=== PATIENT | male | born 1975 | race Caucasian/White ===

== ENCOUNTER → 2016-08-15 | Outpatient (REF) ==
[~2016-08-15] MED LIST: ANTIBIOTIC; CEPHALEXIN500 M1 PO; NORCO 325 MG-51 TAB PO; PERCOCET PO; VITAMIN B11000 MCG/M IM
== END ==
LOC: WSOH 08:50
DX: Z02.4 Encounter for examination for driving license (principal)

== ENCOUNTER 2018-04-09 17:06 | Inpatient (IN) | payer BC ==
[~2018-04-09] VITALS: Ht 172.7 cm; Wt 67.3 kg
[2018-04-09 18:15] LABS: BASO # 0.1 (0.0-0.2); BASO % 0.4 % (0.0-2.0); EOS # 0.1 (0.0-0.7); EOS % 0.7 % (0-4.0); GRAN # 9.4 (1.4-6.5); LYMPH # 1.2 (1.2-3.4); LYMPH % 10.3 % (20.0-51.0); MEAN CELL VOLUME 85 fl (80.0-100.0); MEAN CORPUSCULAR HGB CONC 33 g/dl (33.0-37.0); MEAN PLATELET VOLUME 9.6 fl (7.4-10.4); MONO # 0.5 (0.1-0.6); MONO % 4.5 % (1.7-9.3); PLATELET COUNT 402 K/mm3 (130-400); RED BLOOD COUNT 3.37 M/mm3 (4.20-5.60); REDCELL DISTRIBUTION WIDTH-CV 16.9 % (11.5-14.5)
[2018-04-09 18:29] LABS: ALANINE AMINOTRANSFERASE 18 U/L (21-72); ALBUMIN 3.4 gm/dL (3.5-5.0); ALKALINE PHOSPHATASE 116 U/L (50-136); ANION GAP 14 mmol/L (7-16); AST,SGOT 13 U/L (15-37); BILIRUBIN,TOTAL 0.3 mg/dL (0.0-1.0); BLOOD UREA NITROGEN 41 mg/dL (9-20); C-REACTIVE PROTEIN 8.3 mg/dL (0.0-0.9); CALCIUM 8.7 mg/dL (8.4-10.2); CHLORIDE 110 mmol/L (98-107); GLUCOSE 201 mg/dL (74-106); POTASSIUM 3.9 mmol/L (3.4-5.0); SODIUM 136 mmol/L (137-145); TOTAL PROTEIN 6.9 gm/dL (6.4-8.2); URIC ACID 6.5 mg/dL (3.5-8.5)
[2018-04-09 18:30] LABS: CARBON DIOXIDE 12 mmol/L (22-30); CREATINE KINASE < 20 U/L (55-170); CREATININE, serum 4.88 mg/dL (0.66-1.25)
[2018-04-09 18:51] LABS: ERYTHROCYTE SEDIMENTATION RATE 84 mm/hr (0-15); HEMATOCRIT 28.7 % (42.0-52.0); HEMOGLOBIN 9.4 g/dl (13.5-18.0); MEAN CORPUSCULAR HEMOGLOBIN 28 pg (27.0-31.0)
[2018-04-09 19:47] LABS: INR 1.3 (0.8-3.0); PROTHROMBIN TIME 14.2 SECONDS (9.7-12.8)
[2018-04-09 19:50] LABS: PARTIAL THROMBOPLASTIN TIME 33.1 SECONDS (26.0-37.0)
[2018-04-09 21:07] LABS: COLLECTION METHOD CLEAN CATCH
[2018-04-09 21:22] LABS: IRON,SERUM 13 ug/dL (35-150)
[2018-04-09 21:26] LABS: MUCOUS Present /lpf; PH 5 (5-8); SQUAMOUS EPITHELIAL None Seen /hpf; URINE APPEARANCE Clear; URINE BACTERIA None Seen /hpf; URINE BILIRUBIN Negative (NEGATIVE); URINE BLOOD 2+ (NEGATIVE); URINE COLOR Yellow; URINE GLUCOSE Negative (NEGATIVE); URINE KETONE Negative (NEGATIVE); URINE LEUKOCYTE ESTERASE 1+ (NEGATIVE); URINE NITRATE Negative (NEGATIVE); URINE PROTEIN(semi-quant) Negative (NEGATIVE); URINE UROBILINOGEN Negative (NEGATIVE)
[2018-04-09 21:31] LABS: TOTAL IRON BINDING CAPACITY 235 ug/dL (261-462)
[2018-04-09 21:58] LABS: FERRITIN 273 ng/mL (18-464)
[2018-04-09 22:21] VITALS: BP 137/67; PULSE 112; TEMP 99.5
[2018-04-09 22:22] VITALS: BP 137/67; PULSE 112; TEMP 99.5
[2018-04-09 23:41] VITALS: BP 142/70; PULSE 108; TEMP 99.7
--- NOTE | 2018-04-09 23:57 | NUR ---
PT ARRIVED FROM ER VIA [facility], ACCOMPANIED BY SOCIAL SERVICE COORDINATOR, NO FAMILY WITH PT. PT IN PAIN LEFT FOOT HAS +2 EDEMA, REDNESS, AND WARM, AND RIGHT FOOT HAS +1 EDEMA AND WARM. PT ADVISES THAT HE HAS PAIN ALL OVER HIS BODY AND RATES IT AT A 7/10. PT WAS GIVEN SOME TYLENOL. PT'S TEMP 99.7. PT ATE SOME FOOD THAT HE BROUGHT WITH HIM. PT IS AWARE THAT HE IS NPO AFTER MIDNIGHT. PT IS RESTING IN BED. NO NEEDS AT THIS TIME, CALL LIGHT WITHIN REACH.
[2018-04-10] VITALS (8 sets, daily range): BP systolic 98–140; BP diastolic 53–76; PULSE 74–100; TEMP 97.4–98.9
--- NOTE | 2018-04-10 02:27 | NUR ---
PT SLEEPING/RESTING IN BED, WITH RESP EVEN AND UNLABORED, CALL LIGHT WITHIN REACH.
[2018-04-10 05:40] LABS: URINE PROTEIN:CREAT RATIO 1.19 (0.00-0.14)
[2018-04-10 06:43] LABS: MEAN CELL VOLUME 86 fl (80.0-100.0); MEAN CORPUSCULAR HGB CONC 33 g/dl (33.0-37.0); MEAN PLATELET VOLUME 9.4 fl (7.4-10.4); PLATELET COUNT 371 K/mm3 (130-400); RED BLOOD COUNT 2.84 M/mm3 (4.20-5.60); REDCELL DISTRIBUTION WIDTH-CV 16.9 % (11.5-14.5)
[2018-04-10 06:45] LABS: HEMATOCRIT 24.3 % (42.0-52.0); HEMOGLOBIN 7.9 g/dl (13.5-18.0); MEAN CORPUSCULAR HEMOGLOBIN 28 pg (27.0-31.0)
[2018-04-10 07:04] LABS: ALBUMIN 2.5 gm/dL (3.5-5.0); BILIRUBIN,TOTAL 0.1 mg/dL (0.0-1.0); CALCIUM 8.2 mg/dL (8.4-10.2); TOTAL PROTEIN 5.7 gm/dL (6.4-8.2)
--- NOTE | 2018-04-10 07:13 | NUR ---
UNEVENTFUL NIGHT FOR PT. PT SLEPT THROUGHOUT THE NIGHT WITH NO S/S OF PAIN OR DISCOMFORT NOTED. CALL LIGHT WITHIN REACH.
--- NOTE | 2018-04-10 07:30 | NUR ---
Assessment complete. Pt sitting up in bed, A&O x 4. Breath sounds CTAB. BS active x 4. Pt reports pain to bilat flank 9 out of 10 on pain scale, PRN pain medication was administered per orders. IVF's infusing per orders through left AC site without s/s of complications. No further needs reported. Call light in reach.
[2018-04-10 07:46] LABS: CREATININE, serum 4.25 mg/dL (0.66-1.25)
[2018-04-10 10:24] LABS: ANISOCYTOSIS 1+; BAND 4 % (0-10); EOSINOPHIL 2 % (0-4); LYMPHOCYTE 24 % (20.0-51.0); NEUTROPHILS 64 % (42.0-75.2); PLATELET ESTIMATE NORMAL (NORMAL)
--- NOTE | 2018-04-10 11:20 | NUR ---
Pt back to room from PACU following procedure via bed, alert, denies pain at this time. VSS. IVF's infusing by gravity to left AC site without s/s of complications. Ice water provided and POC reviewed with pt. Paulo to RD with light pink urine. No further needs reported. Call light in reach.
--- NOTE | 2018-04-10 11:48 | NUR ---
Plan to return home. Lives alone. Patient reports that he lives outside of [place]. Patient reports that he uses [facility] for medications. No PCP reported or listed. Patient idnicated that his mother Kylee will support getting him home and is emr contact . Denies the use of any home health or DME. NO DPOA. Declined setting one up. Action: Educated on resources and services locally. No additional concerns identified.
--- NOTE | 2018-04-10 14:15 | NUR ---
No pain or needs at thsi time. The call light is in place. Education related to renal diet provided to the patient.
[2018-04-10 17:10] LABS: COMPLEMENT-C3 153 mg/dL (79-152); COMPLEMENT-C4 32 mg/dL (18-55)
--- NOTE | 2018-04-10 18:14 | NUR ---
Sleeping soundly. Urine remains pink to peach colored. No pain reported at this time. No stones or debris visulaized in the urine. The call light is in place.
--- NOTE | 2018-04-10 20:00 | NUR ---
PT DENIES PAIN OR DISCOMFORT AND ADVISES THAT HE SLEPT WELL AFTER SURGERY. PT HAS MITCHELL CATHETER THAT URINE IS YELLOW AND CLEAR. NO NEEDS AT THIS TIME. PT STILL IN BED WITH HOB AT 30 DEGREE ANGLE, CALL LIGHT WITHIN REACH.
[2018-04-11 02:24] VITALS: BP 143/77; PULSE 96
--- NOTE | 2018-04-11 05:50 | NUR ---
PT HAS HAD AN UNEVENTFUL NIGHT. PT HAS DECLINED PAIN MEDICATION MOST OF THE NIGHT. PT WAS GIVEN PAIN MEDICATION AROUND 0300 OR 0400, FOR PAIN RATED AT A 4/10 ALL OVER PAIN IN JOINTS. PT GIVEN TYLENOL, PT WENT BACK TO SLEEP AND IS NOW RESTING/SLEEPING WITH NO S/S OF PAIN OR DISCOMFORT NOTED. MITCHELL CATHETER HAS BEEN DRAINING WELL WITH CLEAR YELLOW URINE. CALL LIGHT WITHIN REACH.
[2018-04-11 06:54] LABS: BASO % 0.5 % (0.0-2.0); EOS # 0.5 (0.0-0.7); EOS % 6.6 % (0-4.0); GRAN # 4.9 (1.4-6.5); GRAN % 60.6 % (42.2-75.2); LYMPH # 1.3 (1.2-3.4); LYMPH % 16.6 % (20.0-51.0); MEAN CELL VOLUME 86 fl (80.0-100.0); MEAN CORPUSCULAR HGB CONC 32 g/dl (33.0-37.0); MEAN PLATELET VOLUME 9.7 fl (7.4-10.4); MONO % 12.5 % (1.7-9.3); PLATELET COUNT 397 K/mm3 (130-400); RED BLOOD COUNT 2.79 M/mm3 (4.20-5.60); REDCELL DISTRIBUTION WIDTH-CV 17.1 % (11.5-14.5)
[2018-04-11 07:03] LABS: ALBUMIN 2.4 gm/dL (3.5-5.0); BILIRUBIN,TOTAL 0.1 mg/dL (0.0-1.0); CALCIUM 8.7 mg/dL (8.4-10.2); CREATININE, serum 3.7 mg/dL (0.66-1.25); POTASSIUM 4.2 mmol/L (3.4-5.0); TOTAL PROTEIN 5.5 gm/dL (6.4-8.2)
[2018-04-11 07:19] LABS: HEMOGLOBIN 7.7 g/dl (13.5-18.0); MEAN CORPUSCULAR HEMOGLOBIN 28 pg (27.0-31.0)
[2018-04-11 07:33] VITALS: BP 138/79; PULSE 92; TEMP 97.5
--- NOTE | 2018-04-11 08:15 | NUR ---
Assessment complete. Pt resting in bed, A&O x 4. Breath sounds CTAB. BS active x 4. Pt denies pain at this time, reports just feeling tired d/t not able to sleep comfortably over NOC. IVF's infusing per orders through left AC site without s/s of complications. Bates to DD with clear, yellow urine. No further needs reported. Call light in reach.
[2018-04-11 11:48] VITALS: BP 156/84; PULSE 88; TEMP 97.7
[2018-04-11 16:40] VITALS: BP 146/83; PULSE 92; TEMP 98.4
--- NOTE | 2018-04-11 18:20 | NUR ---
Pt resting in bed, denies pain or needs. Uneventful shift. Bates still in place per urologist order. Call light in reach.
[2018-04-11 18:59] VITALS: BP 137/85; PULSE 81; TEMP 98.6
--- NOTE | 2018-04-11 20:35 | NUR ---
Pt resting in bed napping, no C/O pain, shift assessment complete, left Pt call light in reach, bed in lowest position.
[2018-04-12 00:24] VITALS: BP 143/81; PULSE 82; TEMP 98.2
[2018-04-12 03:38] VITALS: BP 154/77; PULSE 85; TEMP 97.9
--- NOTE | 2018-04-12 05:15 | NUR ---
Pt slept well during the night, no C/O pain during the shift, VS ahve remained stable.
[2018-04-12 06:07] LABS: MEAN CELL VOLUME 86 fl (80.0-100.0); MEAN CORPUSCULAR HGB CONC 32 g/dl (33.0-37.0); MEAN PLATELET VOLUME 9.7 fl (7.4-10.4); PLATELET COUNT 398 K/mm3 (130-400); RED BLOOD COUNT 3.04 M/mm3 (4.20-5.60); REDCELL DISTRIBUTION WIDTH-CV 17.1 % (11.5-14.5)
[2018-04-12 06:12] LABS: HEMATOCRIT 26.2 % (42.0-52.0); HEMOGLOBIN 8.4 g/dl (13.5-18.0); MEAN CORPUSCULAR HEMOGLOBIN 28 pg (27.0-31.0)
[2018-04-12 06:24] LABS: ALBUMIN 2.5 gm/dL (3.5-5.0); BILIRUBIN,TOTAL 0.1 mg/dL (0.0-1.0); CALCIUM 8.8 mg/dL (8.4-10.2); CREATININE, serum 3.32 mg/dL (0.66-1.25); TOTAL PROTEIN 5.7 gm/dL (6.4-8.2)
[2018-04-12 06:56] LABS: EOSINOPHIL 10 % (0-4); LYMPHOCYTE 27 % (20.0-51.0); NEUTROPHILS 52 % (42.0-75.2); PLATELET ESTIMATE NORMAL (NORMAL)
--- NOTE | 2018-04-12 07:15 | NUR ---
Report recewived from WARREN Feldman. Pt in bed sleeping will continue to monitor.
[2018-04-12 07:40] VITALS: BP 136/80; PULSE 74; TEMP 98.7
--- NOTE | 2018-04-12 08:52 | NUR ---
Assessment charted. Pt doing well, person catheter removed, 10 ccs aspirated from baloon, tip intact, pericare provided. Pt feeling well states swelling in legs is much improved. IVF to L a/c. Family at bedside, breakfast ordered, will continue to monitor.
--- NOTE | 2018-04-12 10:57 | NUR ---
First visit from the insulation foreman. No needs right now.
[2018-04-12 11:45] VITALS: BP 153/87; PULSE 83; TEMP 98.1
--- NOTE | 2018-04-12 13:02 | NUR ---
Discharge teaching completed at this time. Pt able to urinate, has ordered lunch, manager msw's renal diet info given. pt is going to eat lunch and will be ready to go. Family at bedside. Discussed f/u appts and labs needed. INT dc'd, tip intact. Packet given to patient, he is going to call when ready to leave. Will continue to monitor until discharge. Criteria met.
--- NOTE | 2018-04-12 13:30 | NUR ---
Pt left at this time with medical staff, family to drive home, criteria met.
[2018-04-13 00:54] LABS: ANA SCREEN with REFLEX Negative (Negative)
[2018-04-13 23:47] LABS: C-ANCA 17 U/mL (0-99)
[2018-04-14 15:49] LABS: TOTAL COMPLEMENT(CH50) 74 U/mL (30 - 75)
== END 2018-04-12 13:35 | disposition home or self-care (01) | DRG 660 ==
LOC: COL.ER 17:06 → MEDICAL 20:01 → COL.ER 20:01 → MEDICAL 20:01
PROVIDERS: Emergency Medicine; Urology; ADMIT Internal Medicine Nephrology
PROC: 0T788DZ Dilation of Bilateral Ureters with Intraluminal Device, Via Natural or Artificial Opening Endoscopic (ICD-10-PCS; principal; 2018-04-10 10:00)
PROC: BT1F1ZZ Fluoroscopy of Left Kidney, Ureter and Bladder using Low Osmolar Contrast (ICD-10-PCS; 2018-04-10 10:00)
PROC: 0T9B80Z Drainage of Bladder with Drainage Device, Via Natural or Artificial Opening Endoscopic (ICD-10-PCS; 2018-04-10 10:00)
DX: N17.9 Acute kidney failure, unspecified (principal); E87.2 Acidosis; L03.116 Cellulitis of left lower limb; N13.2 Hydronephrosis with renal and ureteral calculous obstruction; I12.9 Hypertensive chronic kidney disease with stage 1 through stage 4 chronic kidney disease, or unspecified chronic kidney disease; N18.9 Chronic kidney disease, unspecified; E53.8 Deficiency of other specified B group vitamins; F17.210 Nicotine dependence, cigarettes, uncomplicated; R73.9 Hyperglycemia, unspecified; D64.9 Anemia, unspecified; M13.0 Polyarthritis, unspecified; Z87.442 Personal history of urinary calculi
CPT/HCPCS: A4216; C1769; C2617; J0696; J1650; J2405; J2704; J3010; J3370; J7030; J7050; Q9967

== ENCOUNTER → 2018-04-19 | Outpatient (CLI) | payer BC ==
[2018-04-19 18:27] LABS: CALCIUM 7.8 mg/dL (8.4-10.2); POTASSIUM 4.1 mmol/L (3.4-5.0)
[2018-04-19 18:39] LABS: CREATININE, serum 5.45 mg/dL (0.66-1.25)
== END ==
LOC: COL.LAB 17:47
PROVIDERS: Internal Medicine
DX: N17.9 Acute kidney failure, unspecified (principal)

== ENCOUNTER → 2018-04-26 | Outpatient (CLI) | payer BC | LOC: COL.RAD 12:57 | DX: Q62.11 Congenital occlusion of ureteropelvic junction (principal) | CPT/HCPCS: A9562 ==

== ENCOUNTER → 2018-05-11 | Outpatient (CLI) | payer BC ==
[2018-05-11 16:50] LABS: MEAN CELL VOLUME 89 fl (80.0-100.0); MEAN CORPUSCULAR HGB CONC 32 g/dl (33.0-37.0); MEAN PLATELET VOLUME 9.9 fl (7.4-10.4); PLATELET COUNT 326 K/mm3 (130-400); RED BLOOD COUNT 2.79 M/mm3 (4.20-5.60); REDCELL DISTRIBUTION WIDTH-CV 18.6 % (11.5-14.5)
[2018-05-11 16:59] LABS: HEMATOCRIT 24.7 % (42.0-52.0); MEAN CORPUSCULAR HEMOGLOBIN 29 pg (27.0-31.0)
[2018-05-11 17:05] LABS: ALBUMIN 3.4 gm/dL (3.5-5.0); CALCIUM 7.3 mg/dL (8.4-10.2); POTASSIUM 3.6 mmol/L (3.4-5.0)
[2018-05-11 17:14] LABS: CREATININE, serum 4.42 mg/dL (0.66-1.25)
== END ==
LOC: COL.LAB 16:25
PROVIDERS: Internal Medicine
DX: D63.1 Anemia in chronic kidney disease (principal); N20.0 Calculus of kidney; N18.5 Chronic kidney disease, stage 5

== ENCOUNTER 2018-05-17 15:20 | Inpatient (IN) | payer BC ==
[~2018-05-17] VITALS: Ht 172.7 cm; Wt 63.0 kg
[2018-05-21] MEDS ORDERED: CYANOCOBAL1000 MCG/M IM (07:37)
[2018-06-03] VITALS (25 sets, daily range): BP systolic 104–160; BP diastolic 48–88; PULSE 67–87; TEMP 97.3–98.2
[2018-06-03] MEDS ORDERED: VITAMIN B11000 MCG/M IM (06:23)
[2018-06-03 07:31] LABS: CREATININE, serum 3.51 (0.66-1.25); POTASSIUM 3.8 mmol/L (3.4-5.0)
--- NOTE | 2018-06-03 07:40 | NUR ---
Lab notified staff of critical lab value for CO2 being low. Josue Casas CRNA notified, he reports that he is ok with the value and patient doesn't need any treatment at this time.
--- NOTE | 2018-06-03 08:30 | NUR ---
PT ON TABLE AND MONITORING EQUIPMENT PLACED.
--- NOTE | 2018-06-03 08:35 | NUR ---
PT IS DOING FINE. NO PAIN
--- NOTE | 2018-06-03 08:40 | NUR ---
PT DOING WELL
--- NOTE | 2018-06-03 08:45 | NUR ---
PT DOING WELL. PT DOES HAVE SOME PAIN. GIVEN VERSED 1 MG AND FENTANYL 25 MCG
--- NOTE | 2018-06-03 08:50 | NUR ---
PT FEELING BETTER WITH THE PAIN MEDS
--- NOTE | 2018-06-03 08:55 | NUR ---
PT FEELING MORE PAIN. GIVEN 1 MG VERSED AND 25 MCG FENTANYL
--- NOTE | 2018-06-03 09:05 | NUR ---
PT DOING WELL
[2018-06-03 09:27] LABS: MEAN CELL VOLUME 90 fl (80.0-100.0); MEAN CORPUSCULAR HGB CONC 32 g/dl (33.0-37.0); MEAN PLATELET VOLUME 10.4 fl (7.4-10.4); PLATELET COUNT 415 K/mm3 (130-400); RED BLOOD COUNT 2.96 M/mm3 (4.20-5.60); REDCELL DISTRIBUTION WIDTH-CV 16.7 % (11.5-14.5)
[2018-06-03 09:28] LABS: HEMATOCRIT 26.6 % (42.0-52.0); HEMOGLOBIN 8.5 g/dl (13.5-18.0); MEAN CORPUSCULAR HEMOGLOBIN 29 pg (27.0-31.0)
--- NOTE | 2018-06-03 09:30 | NUR ---
GUIDE WIRE AND INTRODUCER SUTURED IN PLACE. TEGADERM PLACED.
--- NOTE | 2018-06-03 09:39 | NUR ---
PT TRANSFERED WITH ASSIST TO CART. TRANSPORTED TO [facility] BY CT STAFF
--- NOTE | 2018-06-03 09:40 | NUR ---
Patient arrives back to SDC drowsy, laying prone, guide wire in place with tape securring it. Patient monitor applied, vitals stable. Patient denies pain or nausea.
--- NOTE | 2018-06-03 09:48 | NUR ---
GAVE REPORT TO CHERYL KELLEY. PT HAD A TOTAL OF 2 MG VERSED AND 50 MCG FENTANYL.
--- NOTE | 2018-06-03 10:00 | NUR ---
Patient's family brought to bedside. Patient resting comfortably. Vitals stable.
--- NOTE | 2018-06-03 10:30 | NUR ---
Vitals stable and patient monitor removed at this time. Patient resting comfortably, denies pain.
--- NOTE | 2018-06-03 12:59 | NUR ---
PATIENT CALLED OUT AND C/O PAIN. RECEIVED MORPHINE 2MG IV PER ORDER FROM DILEEP MCMULLEN CRNA. RECEIVED URINAL
--- NOTE | 2018-06-03 13:21 | NUR ---
PATIENT STATED HE IS FEELING BETTER.
--- NOTE | 2018-06-03 17:58 | NUR ---
Patient up from OR to room 321. Drowsy but arouses to voice and touch. Post op vitals stable. Person to dependent drainage with red-tinged urine present in bag. Neph tube to person bag with minimal amount of red-tinged urine present. Foam dressing to right flank is CDI. Denies pain at this time. Post op fluids infusing to left AC. Will continue to monitor.
[2018-06-03 18:22] LABS: BASO # 0.1 (0.0-0.2); BASO % 0.6 % (0.0-2.0); EOS # 0.2 (0.0-0.7); EOS % 1.2 % (0-4.0); GRAN % 89.4 % (42.2-75.2); LYMPH # 0.8 (1.2-3.4); LYMPH % 6.3 % (20.0-51.0); MEAN CELL VOLUME 91 fl (80.0-100.0); MEAN CORPUSCULAR HGB CONC 31 g/dl (33.0-37.0); MEAN PLATELET VOLUME 9.6 fl (7.4-10.4); MONO # 0.2 (0.1-0.6); MONO % 1.5 % (1.7-9.3); PLATELET COUNT 391 K/mm3 (130-400); RED BLOOD COUNT 2.88 M/mm3 (4.20-5.60); REDCELL DISTRIBUTION WIDTH-CV 16.8 % (11.5-14.5)
[2018-06-03 18:24] LABS: HEMATOCRIT 26.3 % (42.0-52.0); HEMOGLOBIN 8.2 g/dl (13.5-18.0); MEAN CORPUSCULAR HEMOGLOBIN 28 pg (27.0-31.0)
[2018-06-03 18:35] LABS: CALCIUM 8.3 mg/dL (8.4-10.2); CREATININE, serum 3.11 (0.66-1.25); POTASSIUM 4.4 mmol/L (3.4-5.0)
--- NOTE | 2018-06-03 18:54 | NUR ---
Notified Dr. Julian of critical CO2. No new orders. Patient resting in bed. Respirations even and unlabored. Post op vitals stable. Reported off to machinist 2nd shift.
--- NOTE | 2018-06-03 21:00 | NUR ---
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 VS HAVE BEEN STABLE. ASSESSMENT COMPLETE. MITCHELL TO RIGHT KIDNEY AREA DRAINING BLOODY FLUID. MITCHELL CATH WITH TEA COLORED URINE. DRESSING TO RIGHT KIDNEY AREA BULKY-COVERED WITH FOAM TAPE. CLEAN/DRY/INTACT. ORDERED REGULAR DIET FOR DINNER BUT IS STILL TO DROWSY TO EAT. DENIES PAIN AT THIS TIME. ENCOURAGED TO CALL FOR QUESTIONS OR CONCERNS. VERBALIZES UNDERSTANDING. CALL LIGHT WITHIN REACH. BED IN LOW POSITION/WHEELS LOCKED. WILL MONITOR.
[2018-06-04] VITALS (8 sets, daily range): BP systolic 110–132; BP diastolic 47–70; PULSE 60–81; TEMP 97.3–98
--- NOTE | 2018-06-04 05:00 | NUR ---
RESTED WELL THROUGH THE NIGHT. DENIED PAIN. VS STABLE. MITCHELL TO RIGHT SIDE DRAINED 800MLS BLOODY FLUID. MITCHELL CATH DRAINED 100MLS BLOOD TINGED FLUID. ENCOURAGED TO CALL FOR QUESTIONS OR CONCERNS. VERBALIZES UNDERSTANDING
[2018-06-04 06:30] LABS: BASO % 0.4 % (0.0-2.0); EOS % 0.1 % (0-4.0); GRAN # 9.1 (1.4-6.5); GRAN % 85.4 % (42.2-75.2); LYMPH # 1.1 (1.2-3.4); LYMPH % 9.8 % (20.0-51.0); MEAN CELL VOLUME 89 fl (80.0-100.0); MEAN CORPUSCULAR HGB CONC 32 g/dl (33.0-37.0); MONO # 0.4 (0.1-0.6); MONO % 3.5 % (1.7-9.3); PLATELET COUNT 404 K/mm3 (130-400); RED BLOOD COUNT 2.98 M/mm3 (4.20-5.60); REDCELL DISTRIBUTION WIDTH-CV 16.5 % (11.5-14.5)
[2018-06-04 06:33] LABS: HEMATOCRIT 26.6 % (42.0-52.0); HEMOGLOBIN 8.4 g/dl (13.5-18.0); MEAN CORPUSCULAR HEMOGLOBIN 28 pg (27.0-31.0)
[2018-06-04 06:44] LABS: CALCIUM 8.5 mg/dL (8.4-10.2); CREATININE, serum 3.33 (0.66-1.25); POTASSIUM 4.9 mmol/L (3.4-5.0)
--- NOTE | 2018-06-04 07:25 | NUR ---
CRITICAL CO2 LAB RESULT OF [address] BENJAMIN. NO ORDERS GIVEN AT THIS TIME.
--- NOTE | 2018-06-04 07:25 | NUR ---
CRITICAL CO2 RESULT OF [address] BENJAMIN. ORDERS TO SALINE LOCK IV AND TO STOP CBI GIVEN.
--- NOTE | 2018-06-04 07:35 | NUR ---
PATIENT IN BED LYING ON RT SIDE. AWAKENS EASILY. ANSWERS QUESTIONS APPROPRIATELY. STATES HE HAS A PAIN PILL BEFORE THIS ASSESSMENT. STATES PAIN IN DOWN TO A 4. LUNGS CLEAR. BOWEL SOUNDS PRESENT TO ALL FOUR QUADS. PT STATES HE HAS NOT HAD MUCH FLATUS SINCE YESTERDAY. DRESSING TO RT SIDE FLANK IS CLEAN DRY AND INTACT FOAM TAPE COVERING DRESSING. TUBE COMING OUT OF DRESSING IN DRAINING CLEAR PATSY URINE WITH OCCASIONAL CLOTS OF BLOOD. SKIN WARM AND DRY. IV FLUIDS DISCONNECTED PER DOCTORS ORDER. IV TO LEFT FOREARM FLUSHES EASILY, NO S/S OF REDNESS OR EDEMA. NO EDEMA NOTED TO EXTREMITIES. CAP REFILL LESS THAN 3 ALL EXTREMITIES.NANCY IS PRIMARY NURSE FOR THIS PATIENT. PT RESTING AFTER ASSESSMENT.
--- NOTE | 2018-06-04 08:00 | NUR ---
PATIENT RESTING IN BED THIS MORNING WITH FAMILY PRESENT AT THE BEDSIDE. PATIENT IS A&O. SHALLOW BREATHING NOTED. PATIENT DENIES PRODUCTIVE COUGH OR SOB. VSS. BOWEL SOUNDS ACTIVE ALL FOUR QUADRANTS. PATIENT TOLERATING DIET WITHOUT ANY COMPLAINTS OF N/V. NEPH TUBE TO RIGHT BACK WITH GAUZE AND OCCLUSIVE FOAM TAPE DRESSING CD&I. NEPH TUBE TO DRAINING DARK RED URINE. MITCHELL CATHETER TO DEPENDENT DRAINAGE WITH MODERATE AMOUNTS OF BLOOD-TINGED PATSY URINE WITH CLOTS PRESENT IN MITCHELL BAG. LEFT AC TO INT. CALL LIGHT WITHIN REACH. NO NEEDS AT THIS TIME.
--- NOTE | 2018-06-04 09:56 | NUR ---
Initial visit; Patient, his mom and sister thanked Oracle Applications Analyst for looking in on him and letting him know that Spiritual Care is offered here and Chaplains are always available. Oracle Applications Analyst wished Manuel a successful and thorough recovery.
--- NOTE | 2018-06-04 10:31 | NUR ---
SW met with patient to discuss discharge planning. Patient's family was also present. Patient lives independently at home by himself and plans to return there upon discharge. Patient does not have a PCP and is not interested in obtaining one at this time. Patient obtains prescriptions from [facility] and report no difficulties obtaining meds. Patient does not use any DME or home health sercives. Patient does not have a DPOA but would like to complete one. SW provided copy and will return this afternoon to witness signature. CAIO does not anticipate any discharge needs.
--- NOTE | 2018-06-04 13:19 | NUR ---
SW and NCM met with patient to witness DPOA signature. Patient was provided original and extra copies. SW also placed a copy on patient's chart.
--- NOTE | 2018-06-04 19:25 | NUR ---
PATIENT DENIED PAIN THROUGHOUT THE SHIFT. PATIENT NAPPED OFF AND ON DURING THE DAY. FAMILY AT THE BEDSIDE. REPORT GIVEN TO WARREN MCCARTY.
[2018-06-05] VITALS: BP 104/45; PULSE 85; TEMP 97
[2018-06-05 03:29] VITALS: BP 148/76; PULSE 74; TEMP 97.9
--- NOTE | 2018-06-05 03:35 | NUR ---
Up to bathroom, thought he needed to have a BM. No success. Back to bed with steady gait. Medicated with Percocet 2 tabs for 6/10 pain to right back. Rt. Nephrostomy tube with pink tinged urine to BSD. SL to left AC without redness or swelling.
--- NOTE | 2018-06-05 05:52 | NUR ---
Removed person catheter after deflating balloon, 350cc of urine out. Capped rt Nephrostomy tube, emptied 1200cc pink tinged urine from person bag. Patient tolerated without problem.
--- NOTE | 2018-06-05 06:57 | NUR ---
report from Ping KELLEY.
[2018-06-05 07:24] VITALS: BP 126/71; PULSE 69; TEMP 97.4
--- NOTE | 2018-06-05 07:40 | NUR ---
pt resting in bed denies needs and would like to rest/sleep. Pt reports that he did not sleep last noc.
[2018-06-05 08:31] LABS: CALCIUM 8.7 mg/dL (8.4-10.2); CREATININE, serum 3.44 (0.66-1.25); POTASSIUM 4.5 mmol/L (3.4-5.0)
--- NOTE | 2018-06-05 09:00 | NUR ---
PT SLEEPING AT THIS TIME. PT DENIES PAIN, N/V EARLIER. DRAINAGE BAG REMOVED THIS AM.
--- NOTE | 2018-06-05 12:06 | NUR ---
PT TO BR VOIDED REDDISH URINE AND PASSED ALOT OF SAND LIKE SUBSTANCE. PO PAIN MEDS WORKING FOR PAIN CONTROL AT THIS TIME.
[2018-06-05 12:07] VITALS: BP 104/67; PULSE 70; TEMP 97.5
--- NOTE | 2018-06-05 12:21 | NUR ---
DR. REECE IN TO REMOVE NEPHTUBE. MODERATE DRAINAGE NOTED. WILL REDRESS NEEDED. POSSIBLE DISCHARGE LATER TODAY.
--- NOTE | 2018-06-05 13:45 | NUR ---
DRESSING CHANGE COMPLETE, PLACED ABD AND MEDIPORE TAPE OVER DRAINSITE.
[2018-06-05 16:44] VITALS: BP 130/73; PULSE 70; TEMP 97.8
--- NOTE | 2018-06-05 18:48 | NUR ---
report to Ping RN.
[2018-06-05 19:53] VITALS: BP 128/71; PULSE 77; TEMP 97.7
--- NOTE | 2018-06-05 20:00 | NUR ---
Patient in bed, dressing to right back D/I. Denies pain at this time. Reports voiding without problem, but is not using the urinal in the bathroom. Reports BM this PM. SL to left AC without redness or swelling.
[2018-06-06 00:33] VITALS: BP 120/62; PULSE 77; TEMP 97.6
--- NOTE | 2018-06-06 02:14 | NUR ---
patient reports pain to right lower abdomen 6/10. Dressing to right back dry and intact. Reports voiding, but has not been using the urinal. Asked patient to use the urinal in the bathroom to determine how much he is having out, patient agreed to start with next void. Medicated with Percocet 1 tab at this time.
--- NOTE | 2018-06-06 04:03 | NUR ---
Patient resting, no further complaints of pain.
[2018-06-06 04:11] VITALS: BP 133/71; PULSE 70; TEMP 97.5
--- NOTE | 2018-06-06 06:00 | NUR ---
Patient reports pain has decreased to right abdomen. Voided per urinal pink tinged urine of 300cc.
[2018-06-06 07:51] VITALS: BP 136/76; PULSE 77; TEMP 98.3
--- NOTE | 2018-06-06 12:31 | NUR ---
Discharge instructions reviewed with patient and parent, voiced understanding. Discharged via wheelchair to auto/home with parent at 1231.
== END 2018-06-06 12:31 | disposition home or self-care (01) | DRG 661 ==
LOC: INPTSU 06-03 05:32 → SURG 06-03 05:32 → EDSTATUS 06-03 07:00 → COL.RAD 06-03 07:00 → SURG 06-03 07:00
PROVIDERS: Nurse Anesthetist, Certified Registered; ADMIT Urology
PROC: 0T9030Z Drainage of Right Kidney with Drainage Device, Percutaneous Approach (ICD-10-PCS; 2018-06-03)
PROC: BT1DZZZ Fluoroscopy of Right Kidney, Ureter and Bladder (ICD-10-PCS; 2018-06-03)
PROC: 0TC34ZZ Extirpation of Matter from Right Kidney Pelvis, Percutaneous Endoscopic Approach (ICD-10-PCS; principal; 2018-06-03 14:00)
DX: N13.2 Hydronephrosis with renal and ureteral calculous obstruction (principal); N20.0 Calculus of kidney; F17.210 Nicotine dependence, cigarettes, uncomplicated; N17.9 Acute kidney failure, unspecified; N28.9 Disorder of kidney and ureter, unspecified
CPT/HCPCS: A4216; A4314; C1726; C1758; C1769; C1894; J0690; J0696; J1100; J1170; J2250; J2270; J2405; J2704; J3010; J7030; J7120; Q9967

== ENCOUNTER → 2018-05-21 | Outpatient (CLI) | payer BC ==
[~2018-05-21] MED LIST changes: +CYANOCOBAL1000 MCG/M IM
== END ==
LOC: COL.VAS 08:53
DX: N18.5 Chronic kidney disease, stage 5 (principal); Z99.2 Dependence on renal dialysis
CPT/HCPCS: G0365

== ENCOUNTER 2018-06-01 07:30 | Outpatient (RCR) | payer BC ==
[2018-05-21 07:30] VITALS: BP 125/70; PULSE 85; TEMP 98.4
[~2018-06-01] VITALS: Ht 172.7 cm; Wt 64.0 kg
[2018-06-01 07:50] VITALS: BP 101/71; PULSE 92; TEMP 97.6
[2018-06-03] MEDS ORDERED: VITAMIN B11000 MCG/M IM (06:23)
== END 2018-06-09 11:53 | disposition home or self-care (01) ==
LOC: EUO 07:30
DX: N18.5 Chronic kidney disease, stage 5 (principal); D63.1 Anemia in chronic kidney disease
CPT/HCPCS: J2916

== ENCOUNTER 2018-06-24 10:31 | Inpatient (IN) | payer BC ==
[~2018-06-24] VITALS: Ht 172.7 cm; Wt 52.2 kg
[2018-08-19] VITALS (31 sets, daily range): BP systolic 105–159; BP diastolic 56–96; PULSE 60–97; TEMP 97.3–98.4
--- NOTE | 2018-08-19 07:06 | NUR ---
TO RM 8 PER OWN WILL STEADY GAIT. ALERT ORIENTED X3, VERBALIZED UNDERSTANDING AND SIGNED CONSENT.
--- NOTE | 2018-08-19 08:00 | NUR ---
Report received from WARREN Mc, prior to radiology procedure.
--- NOTE | 2018-08-19 08:05 | NUR ---
Visit with patient in admission room. All questions answered to his satisfation. Consent has been signed for guidewire placement.
--- NOTE | 2018-08-19 08:09 | NUR ---
Transport pt to radiology via cart and this RN and WARREN Doherty, assist without complications.
--- NOTE | 2018-08-19 08:12 | NUR ---
Arrive at radiology room. Pt stands and pivots from cart to radiology table without complications. Monitors on and alarms set. Wait for Dr. Garcia to arrive.
--- NOTE | 2018-08-19 08:30 | NUR ---
Dr. Garcia arrives and visits with patient.
--- NOTE | 2018-08-19 08:37 | NUR ---
Guidewire placement procedure started.
--- NOTE | 2018-08-19 10:10 | NUR ---
Guidewire placement procedure completed. Pt tolerated procedure well.
--- NOTE | 2018-08-19 10:15 | NUR ---
Dr. Garcia out of room.
--- NOTE | 2018-08-19 10:16 | NUR ---
Pt transfers self from radiology bed to cart without complications. Transfer pt via cart and this RN and WARREN Doherty assist, to [employer] without complications.
--- NOTE | 2018-08-19 10:25 | NUR ---
Report given to WARREN Mc.
--- NOTE | 2018-08-19 10:30 | NUR ---
RETURNED FROM RADIOLOGY IN PRONE POSITION. CRYING DUE TO PAIN. ONCE SETTLED IN RM AND WARM BLANKETS APPLIED, STATED HE FELT "SOME BETTER" RECEIVED VERSED AND FENTANYL IN RADIOLOGY. WILL CONTINUED TO MONITOR. CALL LIGHT IN REACH, AND BED IN LOW POSITION WITH BED RAILS UP.
[2018-08-19 11:08] LABS: HEMOGLOBIN 10.1 g/dl (13.5-18.0); MEAN CELL VOLUME 88 fl (80.0-100.0); MEAN CORPUSCULAR HEMOGLOBIN 29 pg (27.0-31.0); MEAN CORPUSCULAR HGB CONC 33 g/dl (33.0-37.0); MEAN PLATELET VOLUME 10.2 fl (7.4-10.4); PLATELET COUNT 273 K/mm3 (130-400); RED BLOOD COUNT 3.53 M/mm3 (4.20-5.60); REDCELL DISTRIBUTION WIDTH-CV 15.7 % (11.5-14.5)
[2018-08-19 11:13] LABS: CALCIUM 8.6 mg/dL (8.4-10.2); CREATININE, serum 3.63 (0.66-1.25); POTASSIUM 3.7 mmol/L (3.4-5.0)
[2018-08-19 11:15] LABS: HEMATOCRIT 31.1 % (42.0-52.0)
--- NOTE | 2018-08-19 12:55 | NUR ---
1200- PATIENT SLEEPING QUIETLY
[2018-08-19 15:58] LABS: MEAN CELL VOLUME 92 fl (80.0-100.0); MEAN CORPUSCULAR HGB CONC 31 g/dl (33.0-37.0); MEAN PLATELET VOLUME 10.4 fl (7.4-10.4); PLATELET COUNT 255 K/mm3 (130-400); RED BLOOD COUNT 3.08 M/mm3 (4.20-5.60); REDCELL DISTRIBUTION WIDTH-CV 15.9 % (11.5-14.5)
[2018-08-19 16:13] LABS: HEMATOCRIT 28.4 % (42.0-52.0); HEMOGLOBIN 8.8 g/dl (13.5-18.0); MEAN CORPUSCULAR HEMOGLOBIN 29 pg (27.0-31.0)
--- NOTE | 2018-08-19 16:20 | NUR ---
returned to room per bed from PACU, awake and alert but sleepy, IV infusign per dial-a-flow and placed at 100ml/hr, on room air and O2 sat 98%, person cath patent draining clear red urine, nephrostomy tube to right side of back with dressing intact, draining red urine into drainage bag, full assessment compelted, see interventions for further info, asking for something to drink and will provide
--- NOTE | 2018-08-19 16:45 | NUR ---
sleeps between checks, awakens easily and takes sips of water and tolerates well
--- NOTE | 2018-08-19 17:00 | NUR ---
continues to sleep, awakens easily and mom and family at bedside now
--- NOTE | 2018-08-19 17:30 | NUR ---
awake and visiting with family, take water and tolerates well, will offer other clear liquids, urine in person and neph tube remains red, continues to deny pain or needs
--- NOTE | 2018-08-19 18:17 | NUR ---
have ordeed clear liquids for supper
--- NOTE | 2018-08-19 18:38 | NUR ---
c/o pain 06/02, medicated with percocet 5mg 1 tab
--- NOTE | 2018-08-19 18:50 | NUR ---
bedside shift report given to WARREN Batres
--- NOTE | 2018-08-19 20:00 | NUR ---
Shift assessment complete. Patient in bed, eating dinner. Tolerating clear liquid diet. Pain 4/10, declines further pain medication. Bloody drainage noted from nephrostomy tube and person catheter. Patent, with minimal clots noted. Declines further needs at this time. Will continue to monitor.
--- NOTE | 2018-08-19 20:00 | NUR ---
Shift assessment complete. States, pain 4/10 in right flank. Declines pain medication. Nephrostomy tube patent, bloody drainage, clots noted. Tolerated clear liquids for dinner. Did not want to ambulate. Denies further needs at this time. Will continue to monitor.
[2018-08-20] VITALS (7 sets, daily range): BP systolic 103–124; BP diastolic 64–89; PULSE 60–86; TEMP 97.4–98
[2018-08-20 06:11] LABS: BASO % 0.2 % (0.0-2.0); EOS % 0.1 % (0-4.0); GRAN # 8.6 (1.4-6.5); GRAN % 86.1 % (42.2-75.2); LYMPH # 0.9 (1.2-3.4); LYMPH % 8.6 % (20.0-51.0); MEAN CELL VOLUME 89 fl (80.0-100.0); MEAN CORPUSCULAR HGB CONC 33 g/dl (33.0-37.0); MEAN PLATELET VOLUME 11.9 fl (7.4-10.4); MONO # 0.5 (0.1-0.6); MONO % 4.6 % (1.7-9.3); RED BLOOD COUNT 3.22 M/mm3 (4.20-5.60); REDCELL DISTRIBUTION WIDTH-CV 15.5 % (11.5-14.5)
[2018-08-20 06:39] LABS: HEMATOCRIT 28.6 % (42.0-52.0); HEMOGLOBIN 9.3 g/dl (13.5-18.0); MEAN CORPUSCULAR HEMOGLOBIN 29 pg (27.0-31.0)
[2018-08-20 06:42] LABS: PLATELET COUNT 138 K/mm3 (130-400)
--- NOTE | 2018-08-20 06:50 | NUR ---
bedside shift report received from WARREN Batres
--- NOTE | 2018-08-20 08:10 | NUR ---
awake end and instructed on being able to have regular food and that will discontinue person catheter and plug the neph tube, verbalizes understanding but then goes back to sleep quickly, full assessment completed, see interventions for further info, denies pain or needs
--- NOTE | 2018-08-20 10:10 | NUR ---
awakened no and awakens easily, person catheter discontinued and toelrated well, neph tube remains intact but discontinued from gravity drainage and plug placed, will order breakfast now,
[2018-08-20 10:26] LABS: CALCIUM 8.2 mg/dL (8.4-10.2); CREATININE, serum 3.47 (0.66-1.25); POTASSIUM 4.2 mmol/L (3.4-5.0)
--- NOTE | 2018-08-20 10:27 | NUR ---
Dr Julian in to see patient
--- NOTE | 2018-08-20 10:34 | NUR ---
encouraged patient to get up and walk and refuses until after breakfast
--- NOTE | 2018-08-20 10:59 | NUR ---
resting in bed after having had breakfast, encouraged to get up and ambulate
--- NOTE | 2018-08-20 11:20 | NUR ---
ambulating in savage with SCHOOL PSYCHOLOGY SPECIALIST with steady gait
--- NOTE | 2018-08-20 11:48 | NUR ---
Initial visit; Patient thanked Mine Wirer for looking in on him and offering spiritual care.
--- NOTE | 2018-08-20 12:04 | NUR ---
Dr Julian in to see patient and neph tube removed
--- NOTE | 2018-08-20 12:25 | NUR ---
c/o pain to right flanke area after neph tube discontinued, medicated with percocet 5mg 1 tab, eating lunch
--- NOTE | 2018-08-20 13:15 | NUR ---
lying in bed with eyes, closed, states he is continuing to have pain from the neph tube being removed, medicated with second tab of percocet 5mg, encouraged to drink more water and try to void,
--- NOTE | 2018-08-20 14:03 | NUR ---
SW met with the patient to discuss discharge plan. The patient lives alone outside of [place]. He states that his mother (Kylee) lives in [place]. He reports independence with ADLs and does not have any DME. The patient does not have a primary care provider and he was not interested in being set up with one or at a clinic. He states that he receives his medications at the [facility] and he reports no difficulties obtaining his meds. The patient's advanced directives are in EMR and his mother (Kylee) and a Elsa are his DPOA-HC. The patient plans to return home upon discharge. No additional needs at this time.
--- NOTE | 2018-08-20 14:10 | NUR ---
resting in bed, denies urge to void, explained to him again the need to drink water and to try and void, informed him he could sleep for 1 hour and then will assist him getting up to void
--- NOTE | 2018-08-20 15:10 | NUR ---
entered room and awakened him and assisted him up to bathroom, was able to void 400ml clear reddish brown urine, dressing to right flanke is saturated and reddish clear fluid leaking, covered with folded 4x4s and tegaderm dressing, up then and ambulated in savage independently
--- NOTE | 2018-08-20 17:09 | NUR ---
appears toa be sleeping, awakened and denies urge to void again at this time
--- NOTE | 2018-08-20 18:58 | NUR ---
bedside shift report given to WARREN Womack
--- NOTE | 2018-08-20 20:33 | NUR ---
Pt resting in bed. NO distress noted. Pt denies pain at this time. Assessment WNL. Dressing to R flank from discontinued nephro tube is clean, dry intact- covered with guaze and tegaderm. Pt refusing bowel meds due to history of chronic diarrhea. No further needs noted. Will continue to monitor.
--- NOTE | 2018-08-21 00:09 | NUR ---
Pt resting. Denies pain. IV antibiotic given via RW INT. Pt voided in urinal. Output is clear, reddish with small clots. Pt denies difficulty urinating or discomfort with urination. Will continue to monitor.
[2018-08-21 04:24] VITALS: BP 124/74; PULSE 82; TEMP 97.7
--- NOTE | 2018-08-21 05:55 | NUR ---
Pt states that he feels like he is wet. Nephrostomy tube site is draining through the dressing. Bed linens and gown changed. Dressing changed. Guaze and tegaderm applied. Pt voided clear, pink urine with minimal small clots. Pt denies pain.
[2018-08-21 08:23] VITALS: BP 125/62; PULSE 86; TEMP 97.8
--- NOTE | 2018-08-21 10:09 | NUR ---
Pt awaken by WARREN Pires. Pt c/o soreness around R lower back dressing site, but refuses to take pain med. Pt's dressing soaked with clear drainage and new dressing applied over. Call light in reach.
[2018-08-21 11:55] VITALS: BP 129/80; PULSE 78; TEMP 98
--- NOTE | 2018-08-21 12:00 | NUR ---
PT WENT OVER DISCHARGE INSTRUCTION AND ABLE TO VERBALIZE UNDERSTANDING OF DC INSTRUCTION. PADS AND TEGADERMS PROVIDED FOR PT TO TAKE HOME FOR DRESSING CHANGE. PT SIGNED DC PAPER AND WOULD LIKE TO REST IN BED FOR A WHILE BEFORE PT DRIVE HIMSELF HOME. CALL LIGHT IN REACH.
--- NOTE | 2018-08-21 13:05 | NUR ---
REPORT GIVEN TO WARREN VALLEJO THAT PT SIGNED ALL THE DC PAPERS AND WILL DRIVE BACK HOME BY HIMSELF WHEN PT'S READY.
== END 2018-08-21 14:30 | disposition home or self-care (01) | DRG 661 ==
LOC: SURG 07-15 07:00 → OR 08-19 05:59 → SURG 08-19 07:00
PROVIDERS: Nurse Anesthetist, Certified Registered; ADMIT Urology
PROC: 0T7 Urinary System, Dilation (ICD-10-PCS; 2018-08-19)
PROC: 0T9030Z Drainage of Right Kidney with Drainage Device, Percutaneous Approach (ICD-10-PCS; 2018-08-19)
PROC: 0TC08ZZ Extirpation of Matter from Right Kidney, Via Natural or Artificial Opening Endoscopic (ICD-10-PCS; principal; 2018-08-19 13:00)
DX: N20.0 Calculus of kidney (principal); N13.5 Crossing vessel and stricture of ureter without hydronephrosis; N18.9 Chronic kidney disease, unspecified; D63.1 Anemia in chronic kidney disease
CPT/HCPCS: A4314; A9284; C1758; C1769; C1894; J0690; J1100; J2250; J2270; J2405; J2704; J3010; J7030; J7120; Q9967

== ENCOUNTER 2018-11-24 22:03 | Inpatient (IN) | payer BC ==
[~2018-11-24] VITALS: Ht 172.7 cm; Wt 61.8 kg
[2018-11-24 23:37] LABS: BASO # 0.1 (0.0-0.2); BASO % 0.6 % (0.0-2.0); EOS # 0.8 (0.0-0.7); GRAN # 9.6 (1.4-6.5); GRAN % 73.2 % (42.2-75.2); LYMPH # 1.4 (1.2-3.4); LYMPH % 10.4 % (20.0-51.0); MEAN CELL VOLUME 83 fl (80.0-100.0); MEAN CORPUSCULAR HGB CONC 32 g/dl (33.0-37.0); MEAN PLATELET VOLUME 10.1 fl (7.4-10.4); MONO # 1.2 (0.1-0.6); PLATELET COUNT 392 K/mm3 (130-400); RED BLOOD COUNT 3.22 M/mm3 (4.20-5.60); REDCELL DISTRIBUTION WIDTH-CV 16.9 % (11.5-14.5)
[2018-11-24 23:38] LABS: HEMATOCRIT 26.7 % (42.0-52.0); HEMOGLOBIN 8.4 g/dl (13.5-18.0); MEAN CORPUSCULAR HEMOGLOBIN 26 pg (27.0-31.0)
[2018-11-24 23:52] LABS: ALBUMIN 3.4 gm/dL (3.5-5.0); BILIRUBIN,TOTAL 0.2 mg/dL (0.0-1.0); C-REACTIVE PROTEIN 5.7 mg/dL (0.0-0.9); CALCIUM 7.3 mg/dL (8.4-10.2); CREATININE, serum 3.86 (0.66-1.25); POTASSIUM 3.5 mmol/L (3.4-5.0); TOTAL PROTEIN 6.9 gm/dL (6.4-8.2)
[2018-11-25 00:01] LABS: ERYTHROCYTE SEDIMENTATION RATE 56 mm/hr (0-15)
[2018-11-25 00:09] LABS: PHOSPHOROUS 6.8 mg/dL (2.5-4.5)
[2018-11-25 00:14] LABS: MAGNESIUM 0.7 mg/dL (1.6-2.3)
[2018-11-25 01:16] LABS: COLLECTION METHOD CLEAN CATCH
[2018-11-25 01:25] LABS: MUCOUS Present /lpf; PH 6 (5-8); SQUAMOUS EPITHELIAL 0-2 /hpf; URINE APPEARANCE Hazy; URINE BACTERIA None Seen /hpf; URINE BILIRUBIN Negative (NEGATIVE); URINE BLOOD 3+ (NEGATIVE); URINE COLOR Yellow; URINE GLUCOSE Negative (NEGATIVE); URINE KETONE Negative (NEGATIVE); URINE LEUKOCYTE ESTERASE 3+ (NEGATIVE); URINE NITRATE Negative (NEGATIVE); URINE PROTEIN(semi-quant) 2+ (NEGATIVE); URINE RBC >50 /hpf; URINE UROBILINOGEN Negative (NEGATIVE)
--- NOTE | 2018-11-25 02:45 | NUR ---
Patient arrived to the unit at this time to room 308. Patient alert and oriented. Initial assessment and med rec completed at this time. Patient oriented to room. Patient has magnesium running to IV in right upper arm. States he has a headache but is getting better from tylenol given in the ER. Patients states no further needs at this time. Call light within reach.
[2018-11-25 02:52] VITALS: BP 150/75; PULSE 91; TEMP 98.3
[2018-11-25 03:28] VITALS: BP 134/74; PULSE 89; TEMP 98
--- NOTE | 2018-11-25 06:11 | NUR ---
Patient had uneventful night. Resting in bed. Has not reported any more pain. Call light within reach.
--- NOTE | 2018-11-25 06:46 | NUR ---
Report given to WARREN Montoya
[2018-11-25 07:29] VITALS: BP 121/68; PULSE 89; TEMP 98
--- NOTE | 2018-11-25 07:47 | NUR ---
Pt assessment complete. Pt is laying in bed upon entry, he is drowsy but arouses to voice, pt replies being "tired". He currently denies pain. No nausea at this time. Pt denies SOB. POC discussed with patient who verbalizes understanding. No needs at this time. Call light within reach.
--- NOTE | 2018-11-25 08:55 | NUR ---
SW met with the patient to discuss discharge plan. 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 He states that his mother (Kylee Corona) and his two sisters (Elsa & Nicole) live in [place]. He reports independence with ADLs and does not have any DME. The patient does not have a PCP and was not interested with being set up with one right now. He states that he would like to think about it. The patient receives his medications at [facility] and he reports no difficulties obtaining his meds. The patient's advanced directives are in EMR. His DPOA-HC is his mother, Kylee (ph#[phone]) and sister (Elsa ph#[phone]). The patient plans to return home upon discharge. No other identified needs at this time.
[2018-11-25 11:33] LABS: URINE PROTEIN:CREAT RATIO 1.65 (0.00-0.14)
[2018-11-25 12:06] VITALS: BP 143/81; PULSE 81; TEMP 98.1
[2018-11-25 15:56] VITALS: BP 150/86; PULSE 79; TEMP 99
--- NOTE | 2018-11-25 18:59 | NUR ---
Pt had uneventful day. Continued to report pain and "stiffness" to veins, limbs and neck, PRN Tylenol administered with little relief. L arm restricted. POC discussed with patient who verbalizes understanding. No needs at this time. Call light within reach.
[2018-11-25 19:17] VITALS: BP 144/82; PULSE 94; TEMP 98.9
--- NOTE | 2018-11-25 21:00 | NUR ---
Report received from WARREN Montoya. Patient resting in bed. States he has some minor pain but not requiring pain medication at this time. Assessment complete. Lungs CTA. Pulses strong. PM medications given at this time. Denies any further needs at this time. Call light within reach.
[2018-11-26] VITALS (7 sets, daily range): BP systolic 111–154; BP diastolic 52–83; PULSE 69–96; TEMP 98–98.6
--- NOTE | 2018-11-26 01:33 | NUR ---
Patient requests something for pain. This RN asked the patient if he would prefer morphine or tylenol for his pain. He states "morphine gives me a headache, so lets go with tylenol". PRN tylenol given to patient. Will continue to monitor.
--- NOTE | 2018-11-26 06:05 | NUR ---
Patient had uneventful night. Resting in bed. Requested PRN tylenol for pain one time during night. No further needs at this time. Call light within reach.
[2018-11-26 06:42] LABS: BASO # 0.1 (0.0-0.2); BASO % 0.6 % (0.0-2.0); EOS # 0.6 (0.0-0.7); EOS % 6.6 % (0-4.0); GRAN # 6.5 (1.4-6.5); GRAN % 68.4 % (42.2-75.2); LYMPH % 10.1 % (20.0-51.0); MEAN CELL VOLUME 83 fl (80.0-100.0); MEAN CORPUSCULAR HGB CONC 31 g/dl (33.0-37.0); MEAN PLATELET VOLUME 9.7 fl (7.4-10.4); MONO # 1.3 (0.1-0.6); MONO % 13.9 % (1.7-9.3); PLATELET COUNT 398 K/mm3 (130-400)
[2018-11-26 06:43] LABS: HEMATOCRIT 28.2 % (42.0-52.0); HEMOGLOBIN 8.8 g/dl (13.5-18.0); MEAN CORPUSCULAR HEMOGLOBIN 26 pg (27.0-31.0)
[2018-11-26 06:47] LABS: CALCIUM 8.5 mg/dL (8.4-10.2); CREATININE, serum 3.16 (0.66-1.25); MAGNESIUM 1.3 mg/dL (1.6-2.3); PHOSPHOROUS 6.4 mg/dL (2.5-4.5); POTASSIUM 3.5 mmol/L (3.4-5.0)
--- NOTE | 2018-11-26 07:08 | NUR ---
Report given to WARREN Montoya
--- NOTE | 2018-11-26 07:34 | NUR ---
Pt assessment complete. Pt is laying in bed upon entry, he arouses to voice. He is oriented x4. His breathing is even and unlabored on RA. Pt denies SOB, reports SOB on exertion has improved. Currently reporting a JHA, PRN Tylenol administered. Reports no improvement on joint pain/stiffness. No N/T present. Denies N/V. No needs at this time. Call light within reach.
--- NOTE | 2018-11-26 16:52 | NUR ---
Pt reports improvement in pain, he is able to move extremities and head without as much stiffness and pain. Tolerating PO without complications. Has no needs at this time. Call light within reach.
[2018-11-27 03:39] VITALS: BP 107/56; PULSE 67; TEMP 98.2
[2018-11-27 06:26] LABS: BASO % 0.4 % (0.0-2.0); EOS % 0.1 % (0-4.0); GRAN # 8.6 (1.4-6.5); LYMPH # 1.1 (1.2-3.4); LYMPH % 10.2 % (20.0-51.0); MEAN CELL VOLUME 84 fl (80.0-100.0); MEAN CORPUSCULAR HGB CONC 31 g/dl (33.0-37.0); MEAN PLATELET VOLUME 10.2 fl (7.4-10.4); MONO # 1.1 (0.1-0.6); MONO % 10.3 % (1.7-9.3); PLATELET COUNT 436 K/mm3 (130-400); RED BLOOD COUNT 3.28 M/mm3 (4.20-5.60); REDCELL DISTRIBUTION WIDTH-CV 17.1 % (11.5-14.5)
[2018-11-27 06:28] LABS: CALCIUM 8.5 mg/dL (8.4-10.2); CREATININE, serum 3.2 (0.66-1.25); PHOSPHOROUS 5.9 mg/dL (2.5-4.5); POTASSIUM 3.8 mmol/L (3.4-5.0)
[2018-11-27 06:35] LABS: HEMATOCRIT 27.4 % (42.0-52.0); HEMOGLOBIN 8.4 g/dl (13.5-18.0); MEAN CORPUSCULAR HEMOGLOBIN 26 pg (27.0-31.0)
[2018-11-27 07:46] VITALS: BP 112/59; PULSE 66; TEMP 98
[2018-11-27] MEDS ORDERED: TUMS500 MG PO (09:30)
[2018-11-27] MEDS ORDERED: SODIUM BICARBO650 MG PO (09:31)
[2018-11-27] MEDS ORDERED: PREDNISONE10 MG PO (09:46)
--- NOTE | 2018-11-27 12:00 | NUR ---
THIS NURSE INTO GO OVER DISCHARGE PAPERWORK. PT STATED HE HAD HIS RIDE ARRIVING ABOUT 3PM, THIS NURSE STATED THAT I WOULD GO BACK AND DO DISCHARGE PAPERWORK THEN. IV REMOVED, PT WANTED TO SHOWER. NO OTHER NEEDS VOICED AT THIS TIME.
--- NOTE | 2018-11-27 15:15 | NUR ---
DISCHARGE PAPERWORK WENT OVER WITH PT. FAMILY MEMBER AT BEDSIDE TO GIVE PT RIDE HOME. NO QUESTIONS ASKED. PAPERWORK SIGNED.
== END 2018-11-27 15:15 | disposition home or self-care (01) | DRG 690 ==
LOC: COL.ER 22:03 → MEDICAL 11-25 00:58
PROVIDERS: Nurse Practitioner; ADMIT Internal Medicine Nephrology
DX: N39.0 Urinary tract infection, site not specified (principal); N18.5 Chronic kidney disease, stage 5; E87.2 Acidosis; E44.0 Moderate protein-calorie malnutrition; M10.9 Gout, unspecified; D63.1 Anemia in chronic kidney disease; E83.42 Hypomagnesemia; N20.0 Calculus of kidney
CPT/HCPCS: A4216; J0696; J0881; J2270; J2916; J3475; J7512

== ENCOUNTER → 2018-12-15 | Outpatient (CLI) | payer BC ==
[~2018-12-15] MED LIST changes: +PREDNISONE10 MG PO; +SODIUM BICARBO650 MG PO; +TUMS500 MG PO
[2018-12-15 16:52] LABS: ALBUMIN 3.4 gm/dL (3.5-5.0); CALCIUM 6.3 mg/dL (8.4-10.2); PHOSPHOROUS 8.2 mg/dL (2.5-4.5); POTASSIUM 3.5 mmol/L (3.4-5.0)
[2018-12-15 16:55] LABS: CREATININE, serum 3.93 (0.66-1.25)
[2018-12-16 07:00] LABS: HEMOGLOBIN 10.5 g/dl (13.5-18.0)
[2018-12-16 07:01] LABS: HEMATOCRIT 34.4 % (42.0-52.0)
== END ==
LOC: COL.LAB 16:12
PROVIDERS: Internal Medicine Nephrology
DX: N18.5 Chronic kidney disease, stage 5 (principal); D63.1 Anemia in chronic kidney disease

== ENCOUNTER → 2019-06-06 | Outpatient (CLI) | payer BC ==
[2019-06-06 15:01] LABS: COLLECTION METHOD CLEAN CATCH
[2019-06-06 15:03] LABS: MEAN CELL VOLUME 82 fl (80.0-100.0); MEAN CORPUSCULAR HGB CONC 32 g/dl (33.0-37.0); MEAN PLATELET VOLUME 9.5 fl (7.4-10.4); PLATELET COUNT 570 K/mm3 (130-400); RED BLOOD COUNT 3.55 M/mm3 (4.20-5.60); REDCELL DISTRIBUTION WIDTH-CV 17.6 % (11.5-14.5)
[2019-06-06 15:08] LABS: PH 7 (5-8); SQUAMOUS EPITHELIAL None Seen /hpf; URINE APPEARANCE Cloudy; URINE BACTERIA Rare /hpf; URINE BILIRUBIN Negative (NEGATIVE); URINE BLOOD 3+ (NEGATIVE); URINE COLOR Yellow; URINE GLUCOSE Negative (NEGATIVE); URINE KETONE Negative (NEGATIVE); URINE LEUKOCYTE ESTERASE 3+ (NEGATIVE); URINE NITRATE Negative (NEGATIVE); URINE PROTEIN(semi-quant) 2+ (NEGATIVE); URINE RBC >50 /hpf; URINE UROBILINOGEN Negative (NEGATIVE)
[2019-06-06 15:15] LABS: ALBUMIN 3.5 gm/dL (3.5-5.0); BILIRUBIN,TOTAL 0.4 mg/dL (0.0-1.0); CALCIUM 7.3 mg/dL (8.4-10.2); CREATININE, serum 5.01 (0.66-1.25); PHOSPHOROUS 8.4 mg/dL (2.5-4.5); POTASSIUM 3.5 mmol/L (3.4-5.0); TOTAL PROTEIN 7.5 gm/dL (6.4-8.2)
[2019-06-06 15:19] LABS: URINE PROTEIN:CREAT RATIO 1.94 (0.00-0.14)
[2019-06-06 15:21] LABS: HEMATOCRIT 29.2 % (42.0-52.0); HEMOGLOBIN 9.2 g/dl (13.5-18.0); MEAN CORPUSCULAR HEMOGLOBIN 26 pg (27.0-31.0)
[2019-06-06 15:24] LABS: ANISOCYTOSIS 2+; EOSINOPHIL 3 % (0-4); LYMPHOCYTE 12 % (20.0-51.0); MYELOCYTE 1 % (0-0); NEUTROPHILS 75 % (42.0-75.2); POIKILOCYTOSIS 1+
[2019-06-06 15:25] LABS: OVALOCYTES 1+; TARGET CELLS 1+
[2019-06-06 15:38] LABS: ERYTHROCYTE SEDIMENTATION RATE 109 mm/hr (0-15)
== END ==
LOC: COL.LAB 14:31
PROVIDERS: Internal Medicine Nephrology
DX: D63.1 Anemia in chronic kidney disease (principal); N18.5 Chronic kidney disease, stage 5; N20.0 Calculus of kidney

== ENCOUNTER → 2019-08-12 | Outpatient (CLI) | payer BC | LOC: COL.VAS 14:15 | DX: I08.1 Rheumatic disorders of both mitral and tricuspid valves (principal) ==

== ENCOUNTER 2019-11-18 05:44 | Inpatient (IN) | payer BC ==
[~2019-11-18] VITALS: Ht 177.8 cm; Wt 55.3 kg
[2019-11-18] VITALS (547 sets, daily range): BP systolic 87–165; BP diastolic 54–90; PULSE 66–99; TEMP 32.6–33.6; O2SAT 78–100
[2019-11-18] MEDS ORDERED: FLOMAX 0.40.4 MG/CAP PO (06:23)
[2019-11-18] MEDS ORDERED: LASIX 20MG TABL20 MG PO (06:23)
[2019-11-18] MEDS ORDERED: PREDNISONE10 MG PO (06:24)
[2019-11-18] MEDS ORDERED: SODIUM BICARBO650 MG PO (06:24)
[2019-11-18 06:57] LABS: BLOOD UREA NITROGEN 79 mg/dL (9-20); CHLORIDE 111 mmol/L (98-107); CREATININE, serum 8.89 (0.66-1.25); GLUCOSE 120 mg/dL (74-106); POTASSIUM 4.1 mmol/L (3.4-5.0); SODIUM 138 mmol/L (137-145)
[2019-11-18 07:04] LABS: CARBON DIOXIDE < 5 mmol/L (22-30)
[2019-11-18 07:05] LABS: CALCIUM 4.9 mg/dL (8.4-10.2)
[2019-11-18 10:50] LABS: ARTERIAL BLD GAS O2 SATURATION 78.9 % (92-100); ARTERIAL BLD GAS TCO2 CT 5.2; ARTERIAL BLOOD GAS BASE EXCESS -27.9 (-2-2); ARTERIAL BLOOD GAS HCO3 4.3 meq/L (22-26); ARTERIAL BLOOD GAS PCO2 26.8 mmHg (35-45); ARTERIAL BLOOD GAS pH 6.83 (7.35-7.45)
[2019-11-18 11:26] LABS: MEAN CELL VOLUME 78 fl (80.0-100.0); MEAN CORPUSCULAR HGB CONC 32 g/dl (33.0-37.0); PLATELET COUNT 237 K/mm3 (130-400); RED BLOOD COUNT 2.85 M/mm3 (4.20-5.60); REDCELL DISTRIBUTION WIDTH-CV 18.9 % (11.5-14.5)
[2019-11-18 11:35] LABS: INR 1.8 (0.8-3.0); PROTHROMBIN TIME 20.2 SECONDS (9.7-12.8)
[2019-11-18 11:38] LABS: PARTIAL THROMBOPLASTIN TIME 33.8 SECONDS (26.0-37.0)
[2019-11-18 11:39] LABS: ALBUMIN 2.9 gm/dL (3.5-5.0); CREATININE, serum 7.94 (0.66-1.25); POTASSIUM 4.7 mmol/L (3.4-5.0); TOTAL PROTEIN 5.4 gm/dL (6.4-8.2)
[2019-11-18 11:40] LABS: ALBUMIN 2.9 gm/dL (3.5-5.0); TOTAL PROTEIN 5.2 gm/dL (6.4-8.2)
[2019-11-18 11:48] LABS: ARTERIAL BLD GAS O2 SATURATION 97.3 % (92-100); ARTERIAL BLD GAS TCO2 CT 5.8; ARTERIAL BLOOD GAS BASE EXCESS -24.8 (-2-2); ARTERIAL BLOOD GAS HCO3 5.1 meq/L (22-26); ARTERIAL BLOOD GAS PO2 139.7 mmHg (80-100); ARTERIAL BLOOD GAS pH 6.96 (7.35-7.45)
[2019-11-18 11:48] LABS: CALCIUM 5.7 mg/dL (8.4-10.2)
[2019-11-18 11:52] LABS: TROPONIN-I 0.17 ng/mL (0.000-0.035)
[2019-11-18 12:12] LABS: D-DIMER > 5250.00 ng/mLDDu (200-230)
[2019-11-18 12:16] LABS: HEMATOCRIT 22.1 % (42.0-52.0); HEMOGLOBIN 7.1 g/dl (13.5-18.0); MEAN CORPUSCULAR HEMOGLOBIN 25 pg (27.0-31.0)
[2019-11-18 12:49] LABS: BILIRUBIN UNCONJUGATED 0.1 mg/dL (0.0-1.1); BILIRUBIN,DIRECT 0.8 mg/dL (0.0-0.4); BILIRUBIN,TOTAL 0.9 mg/dL (0.0-1.0)
[2019-11-18 12:50] LABS: BILIRUBIN,TOTAL 0.9 mg/dL (0.0-1.0)
[2019-11-18 12:58] LABS: FIBRINOGEN 288 mg/dL (200-450)
[2019-11-18 13:14] LABS: BAND 15 % (0-10); HYPOCHROMIA 1+; LYMPHOCYTE 5 % (20.0-51.0); NEUTROPHILS 80 % (42.0-75.2); NUCLEATED RED BLOOD CELL 10 (0-6); PLATELET ESTIMATE NORMAL (NORMAL)
[2019-11-18 13:18] LABS: ANISOCYTOSIS 2+; POIKILOCYTOSIS 2+
[2019-11-18 13:19] LABS: BURR CELLS 2+; OVALOCYTES 1+; SCHISTOCYTES 1+
[2019-11-18 13:20] LABS: MICROCYTOSIS 1+
[2019-11-18 15:45] LABS: HEMATOCRIT 23.6 % (42.0-52.0); HEMOGLOBIN 8.1 g/dl (13.5-18.0)
[2019-11-18 15:59] LABS: ALBUMIN 2.7 gm/dL (3.5-5.0); CALCIUM 6.4 mg/dL (8.4-10.2); CREATININE, serum 3.59 (0.66-1.25); PHOSPHOROUS 6.2 mg/dL (2.5-4.5)
[2019-11-18 16:04] LABS: POTASSIUM 2.8 mmol/L (3.4-5.0)
[2019-11-18 17:21] LABS: ARTERIAL BLD GAS O2 SATURATION 98.5 % (92-100); ARTERIAL BLD GAS TCO2 CT 19.8; ARTERIAL BLOOD GAS BASE EXCESS -2.6 (-2-2); ARTERIAL BLOOD GAS HCO3 19.1 meq/L (22-26); ARTERIAL BLOOD GAS pH 7.53 (7.35-7.45)
[2019-11-18 17:22] LABS: ARTERIAL BLOOD GAS PCO2 23.3 mmHg (35-45); ARTERIAL BLOOD GAS PO2 157.5 mmHg (80-100)
[2019-11-18 17:23] LABS: MAGNESIUM 1.2 mg/dL (1.6-2.3); PHOSPHOROUS 6.1 mg/dL (2.5-4.5)
[2019-11-18 21:27] LABS: CALCIUM 6.8 mg/dL (8.4-10.2); CREATININE, serum 3.96 (0.66-1.25)
[2019-11-18 21:29] LABS: ARTERIAL BLD GAS O2 SATURATION 98.4 % (92-100); ARTERIAL BLD GAS TCO2 CT 16.2; ARTERIAL BLOOD GAS BASE EXCESS -10.2 (-2-2); ARTERIAL BLOOD GAS HCO3 15.2 meq/L (22-26); ARTERIAL BLOOD GAS PCO2 32.1 mmHg (35-45); ARTERIAL BLOOD GAS pH 7.29 (7.35-7.45)
[2019-11-18 21:30] LABS: ARTERIAL BLOOD GAS PO2 149.6 mmHg (80-100)
[2019-11-18 21:30] LABS: POTASSIUM 2.7 mmol/L (3.4-5.0)
[2019-11-18 23:32] LABS: ALBUMIN 2.6 gm/dL (3.5-5.0); CALCIUM 6.6 mg/dL (8.4-10.2); CREATININE, serum 4.18 (0.66-1.25); PHOSPHOROUS 8.5 mg/dL (2.5-4.5)
[2019-11-18 23:37] LABS: POTASSIUM 2.5 mmol/L (3.4-5.0)
[2019-11-18 23:47] LABS: HEPATITIS B SURFACE ANTIGEN Negative (Negative)
[2019-11-18 23:48] LABS: HEPATITIS B SURFACE ANTIBODY <2.0 (())
[2019-11-18 23:49] LABS: HEPATITIS C VIRUS ANTIBODY Negative (Negative)
[2019-11-19] VITALS (815 sets, daily range): BP systolic 98–148; BP diastolic 55–69; PULSE 62–81; TEMP 32.8–35.5; O2SAT 91–100
[2019-11-19 05:14] LABS: ARTERIAL BLOOD GAS BASE EXCESS -10.2 (-2-2); ARTERIAL BLOOD GAS PCO2 30.8 mmHg (35-45); ARTERIAL BLOOD GAS pH 7.31 (7.35-7.45)
[2019-11-19 05:15] LABS: ARTERIAL BLOOD GAS PO2 149.1 mmHg (80-100)
[2019-11-19 05:30] LABS: MEAN CELL VOLUME 74 fl (80.0-100.0); MEAN CORPUSCULAR HGB CONC 34 g/dl (33.0-37.0); MEAN PLATELET VOLUME 11.2 fl (7.4-10.4); PLATELET COUNT 168 K/mm3 (130-400); RED BLOOD COUNT 3.15 M/mm3 (4.20-5.60); REDCELL DISTRIBUTION WIDTH-CV 18.2 % (11.5-14.5)
[2019-11-19 05:36] LABS: HEMATOCRIT 23.3 % (42.0-52.0); MEAN CORPUSCULAR HEMOGLOBIN 25 pg (27.0-31.0)
[2019-11-19 05:37] LABS: ALBUMIN 2.4 gm/dL (3.5-5.0); BILIRUBIN,TOTAL 1.4 mg/dL (0.0-1.0); CALCIUM 7.3 mg/dL (8.4-10.2); CREATININE, serum 4.41 (0.66-1.25); MAGNESIUM 1.5 mg/dL (1.6-2.3); POTASSIUM 3.1 mmol/L (3.4-5.0); TOTAL PROTEIN 4.5 gm/dL (6.4-8.2)
[2019-11-19 06:16] LABS: BAND 2 % (0-10); LYMPHOCYTE 2 % (20.0-51.0); NEUTROPHILS 96 % (42.0-75.2); NUCLEATED RED BLOOD CELL 1 (0-6)
[2019-11-19 06:17] LABS: ANISOCYTOSIS 1+; MICROCYTOSIS 1+; PLATELET ESTIMATE NORMAL (NORMAL)
[2019-11-19 06:18] LABS: OVALOCYTES 1+; TARGET CELLS 1+
[2019-11-19 06:19] LABS: SCHISTOCYTES 1+
[2019-11-19 17:20] LABS: ALBUMIN 2.2 gm/dL (3.5-5.0); CALCIUM 6.8 mg/dL (8.4-10.2); CREATININE, serum 2.28 (0.66-1.25); PHOSPHOROUS 4.8 mg/dL (2.5-4.5)
[2019-11-19 21:18] LABS: ARTERIAL BLD GAS O2 SATURATION 97.1 % (92-100); ARTERIAL BLOOD GAS BASE EXCESS -0.4 (-2-2); ARTERIAL BLOOD GAS HCO3 21.9 meq/L (22-26); ARTERIAL BLOOD GAS PCO2 26.1 mmHg (35-45); ARTERIAL BLOOD GAS PO2 107.5 mmHg (80-100); ARTERIAL BLOOD GAS pH 7.54 (7.35-7.45)
[2019-11-20] VITALS (653 sets, daily range): BP systolic 110–142; BP diastolic 59–88; PULSE 87–101; TEMP 37.1–37.2; O2SAT 93–100
[2019-11-20 05:09] LABS: MEAN CELL VOLUME 75 fl (80.0-100.0); MEAN CORPUSCULAR HGB CONC 33 g/dl (33.0-37.0); PLATELET COUNT 140 K/mm3 (130-400); RED BLOOD COUNT 2.69 M/mm3 (4.20-5.60)
[2019-11-20 05:19] LABS: ALBUMIN 2.3 gm/dL (3.5-5.0); BILIRUBIN,TOTAL 1.1 mg/dL (0.0-1.0); CALCIUM 6.6 mg/dL (8.4-10.2); CREATININE, serum 2.95 (0.66-1.25); MAGNESIUM 2.3 mg/dL (1.6-2.3); PHOSPHOROUS 6.8 mg/dL (2.5-4.5); POTASSIUM 3.3 mmol/L (3.4-5.0); TOTAL PROTEIN 4.4 gm/dL (6.4-8.2)
[2019-11-20 05:20] LABS: CREATININE, serum 2.95 (0.66-1.25)
[2019-11-20 05:23] LABS: FRACTIONAL EXCRETION OF NA+ 3.7 %
[2019-11-20 06:02] LABS: ARTERIAL BLD GAS O2 SATURATION 96.9 % (92-100); ARTERIAL BLD GAS TCO2 CT 25.2; ARTERIAL BLOOD GAS BASE EXCESS 1.4 (-2-2); ARTERIAL BLOOD GAS HCO3 24.3 meq/L (22-26); ARTERIAL BLOOD GAS PCO2 30.7 mmHg (35-45); ARTERIAL BLOOD GAS pH 7.52 (7.35-7.45)
[2019-11-20 06:11] LABS: HEMATOCRIT 20.1 % (42.0-52.0); HEMOGLOBIN 6.7 g/dl (13.5-18.0); MEAN CORPUSCULAR HEMOGLOBIN 25 pg (27.0-31.0)
[2019-11-20 06:16] LABS: ANISOCYTOSIS 1+; BAND 11 % (0-10); HYPOCHROMIA 1+; LYMPHOCYTE 7 % (20.0-51.0); MICROCYTOSIS 1+; NEUTROPHILS 81 % (42.0-75.2); PLATELET ESTIMATE NORMAL (NORMAL)
[2019-11-20 06:17] LABS: OVALOCYTES 1+
[2019-11-20 13:44] LABS: HEMATOCRIT 22.2 % (42.0-52.0); HEMOGLOBIN 7.4 g/dl (13.5-18.0)
[2019-11-20 21:05] LABS: ARTERIAL BLD GAS O2 SATURATION 97.6 % (92-100); ARTERIAL BLD GAS TCO2 CT 22.4; ARTERIAL BLOOD GAS BASE EXCESS -1.6 (-2-2); ARTERIAL BLOOD GAS HCO3 21.4 meq/L (22-26); ARTERIAL BLOOD GAS PCO2 29.8 mmHg (35-45); ARTERIAL BLOOD GAS PO2 108.4 mmHg (80-100); ARTERIAL BLOOD GAS pH 7.48 (7.35-7.45)
[2019-11-21] VITALS (716 sets, daily range): BP systolic 127–169; BP diastolic 79–111; PULSE 80–122; TEMP 36.9; O2SAT 91–100
[2019-11-21 05:39] LABS: ARTERIAL BLD GAS O2 SATURATION 97.5 % (92-100); ARTERIAL BLD GAS TCO2 CT 22.5; ARTERIAL BLOOD GAS BASE EXCESS -2.1 (-2-2); ARTERIAL BLOOD GAS HCO3 21.5 meq/L (22-26); ARTERIAL BLOOD GAS PCO2 32.1 mmHg (35-45); ARTERIAL BLOOD GAS PO2 112.5 mmHg (80-100); ARTERIAL BLOOD GAS pH 7.44 (7.35-7.45)
[2019-11-21 06:11] LABS: MEAN CORPUSCULAR HGB CONC 32 g/dl (33.0-37.0); MEAN PLATELET VOLUME 11.4 fl (7.4-10.4); PLATELET COUNT 134 K/mm3 (130-400); RED BLOOD COUNT 2.98 M/mm3 (4.20-5.60)
[2019-11-21 06:31] LABS: ALBUMIN 2.6 gm/dL (3.5-5.0); CALCIUM 7.2 mg/dL (8.4-10.2); CREATININE, serum 4.74 (0.66-1.25); MAGNESIUM 2.6 mg/dL (1.6-2.3); POTASSIUM 3.9 mmol/L (3.4-5.0); TOTAL PROTEIN 4.8 gm/dL (6.4-8.2)
[2019-11-21 06:33] LABS: PRE ALBUMIN 20.5 mg/dL (17.6-36.0)
[2019-11-21 06:36] LABS: HEMATOCRIT 23.7 % (42.0-52.0); HEMOGLOBIN 7.6 g/dl (13.5-18.0); MEAN CELL VOLUME 80 fl (80.0-100.0); MEAN CORPUSCULAR HEMOGLOBIN 26 pg (27.0-31.0)
[2019-11-21 10:30] LABS: ANISOCYTOSIS 1+; BAND 3 % (0-10); HYPOCHROMIA 2+; LYMPHOCYTE 2 % (20.0-51.0); MICROCYTOSIS 1+; NEUTROPHILS 95 % (42.0-75.2); PLATELET ESTIMATE NORMAL (NORMAL); POIKILOCYTOSIS 1+
[2019-11-21 10:31] LABS: OVALOCYTES 1+
[2019-11-22] VITALS (727 sets, daily range): BP systolic 140–156; BP diastolic 84–92; PULSE 70–97; TEMP 36.9–37.1; O2SAT 79–100
[2019-11-22 04:45] LABS: MEAN CELL VOLUME 80 fl (80.0-100.0); MEAN CORPUSCULAR HGB CONC 32 g/dl (33.0-37.0); MEAN PLATELET VOLUME 11.8 fl (7.4-10.4); PLATELET COUNT 135 K/mm3 (130-400); RED BLOOD COUNT 2.93 M/mm3 (4.20-5.60); REDCELL DISTRIBUTION WIDTH-CV 17.8 % (11.5-14.5)
[2019-11-22 04:46] LABS: HEMATOCRIT 23.5 % (42.0-52.0); HEMOGLOBIN 7.5 g/dl (13.5-18.0); MEAN CORPUSCULAR HEMOGLOBIN 26 pg (27.0-31.0)
[2019-11-22 04:58] LABS: CREATININE, serum 3.12 (0.66-1.25); POTASSIUM 3.7 mmol/L (3.4-5.0)
[2019-11-22 05:03] LABS: ARTERIAL BLD GAS TCO2 CT 22.7; ARTERIAL BLOOD GAS BASE EXCESS -1.6 (-2-2); ARTERIAL BLOOD GAS HCO3 21.8 meq/L (22-26); ARTERIAL BLOOD GAS PCO2 31.1 mmHg (35-45); ARTERIAL BLOOD GAS PO2 116.8 mmHg (80-100); ARTERIAL BLOOD GAS pH 7.46 (7.35-7.45)
[2019-11-22 14:45] LABS: CLOSTRIDIUM DIFF A/B NEG; CLOSTRIDIUM DIFF A/B INTERP No C.diff present
[2019-11-22 16:38] LABS: ALBUMIN 2.8 gm/dL (3.5-5.0); BILIRUBIN,TOTAL 1.4 mg/dL (0.0-1.0); CALCIUM 8.2 mg/dL (8.4-10.2); CREATININE, serum 3.61 (0.66-1.25); MAGNESIUM 2.5 mg/dL (1.6-2.3); PHOSPHOROUS 7.2 mg/dL (2.5-4.5); TOTAL PROTEIN 5.2 gm/dL (6.4-8.2)
[2019-11-22 21:21] LABS: ARTERIAL BLD GAS O2 SATURATION 97.6 % (92-100); ARTERIAL BLD GAS TCO2 CT 24.2; ARTERIAL BLOOD GAS BASE EXCESS -0.9 (-2-2); ARTERIAL BLOOD GAS HCO3 23.1 meq/L (22-26); ARTERIAL BLOOD GAS PCO2 35.4 mmHg (35-45); ARTERIAL BLOOD GAS PO2 108.5 mmHg (80-100); ARTERIAL BLOOD GAS pH 7.43 (7.35-7.45)
[2019-11-23] VITALS (773 sets, daily range): BP systolic 134–160; BP diastolic 75–110; PULSE 69–96; TEMP 98.1–98.7; O2SAT 93–100
[2019-11-23 06:03] LABS: ARTERIAL BLD GAS O2 SATURATION 97.6 % (92-100); ARTERIAL BLOOD GAS BASE EXCESS 0.9 (-2-2); ARTERIAL BLOOD GAS HCO3 24.3 meq/L (22-26); ARTERIAL BLOOD GAS PCO2 34.2 mmHg (35-45); ARTERIAL BLOOD GAS pH 7.47 (7.35-7.45)
[2019-11-23 08:47] LABS: MEAN CELL VOLUME 82 fl (80.0-100.0); MEAN CORPUSCULAR HGB CONC 32 g/dl (33.0-37.0); MEAN PLATELET VOLUME 10.6 fl (7.4-10.4); PLATELET COUNT 163 K/mm3 (130-400); RED BLOOD COUNT 3.09 M/mm3 (4.20-5.60); REDCELL DISTRIBUTION WIDTH-CV 18.2 % (11.5-14.5)
[2019-11-23 09:01] LABS: CALCIUM 8.2 mg/dL (8.4-10.2); CREATININE, serum 4.49 (0.66-1.25); MAGNESIUM 2.4 mg/dL (1.6-2.3); POTASSIUM 3.6 mmol/L (3.4-5.0)
[2019-11-23 09:19] LABS: HEMATOCRIT 25.4 % (42.0-52.0); MEAN CORPUSCULAR HEMOGLOBIN 26 pg (27.0-31.0)
[2019-11-23 09:26] LABS: BAND 3 % (0-10); LYMPHOCYTE 4 % (20.0-51.0); METAMYELOCYTE 2 % (0-0); NEUTROPHILS 89 % (42.0-75.2); PLATELET ESTIMATE NORMAL (NORMAL)
[2019-11-23 16:29] LABS: COLLECTION METHOD CLEAN CATCH
[2019-11-23 16:43] LABS: MUCOUS Present /lpf; PH 6 (5-8); SQUAMOUS EPITHELIAL 0-2 /hpf; URINE APPEARANCE Cloudy; URINE BACTERIA Rare /hpf; URINE BILIRUBIN Negative (NEGATIVE); URINE BLOOD 3+ (NEGATIVE); URINE COLOR Amber; URINE GLUCOSE Negative (NEGATIVE); URINE KETONE Negative (NEGATIVE); URINE LEUKOCYTE ESTERASE 3+ (NEGATIVE); URINE NITRATE Negative (NEGATIVE); URINE PROTEIN(semi-quant) 2+ (NEGATIVE); URINE RBC >50 /hpf; URINE UROBILINOGEN Negative (NEGATIVE); URINE WBC >50 /hpf
[2019-11-24] VITALS (811 sets, daily range): BP systolic 140–158; BP diastolic 80–108; PULSE 81–112; TEMP 98.1–98.6; O2SAT 97–100
[2019-11-24 05:05] LABS: MEAN CELL VOLUME 85 fl (80.0-100.0); MEAN CORPUSCULAR HGB CONC 31 g/dl (33.0-37.0); MEAN PLATELET VOLUME 11.8 fl (7.4-10.4); PLATELET COUNT 161 K/mm3 (130-400); RED BLOOD COUNT 2.93 M/mm3 (4.20-5.60); REDCELL DISTRIBUTION WIDTH-CV 18.5 % (11.5-14.5)
[2019-11-24 05:06] LABS: HEMATOCRIT 24.9 % (42.0-52.0); HEMOGLOBIN 7.7 g/dl (13.5-18.0); MEAN CORPUSCULAR HEMOGLOBIN 26 pg (27.0-31.0)
[2019-11-24 05:19] LABS: CALCIUM 8.3 mg/dL (8.4-10.2); CREATININE, serum 2.9 (0.66-1.25); MAGNESIUM 2.1 mg/dL (1.6-2.3); POTASSIUM 3.8 mmol/L (3.4-5.0)
[2019-11-24 05:29] LABS: ARTERIAL BLD GAS O2 SATURATION 97.5 % (92-100); ARTERIAL BLD GAS TCO2 CT 25.8; ARTERIAL BLOOD GAS HCO3 24.7 meq/L (22-26); ARTERIAL BLOOD GAS PCO2 35.7 mmHg (35-45); ARTERIAL BLOOD GAS PO2 102.4 mmHg (80-100); ARTERIAL BLOOD GAS pH 7.46 (7.35-7.45)
[2019-11-24 05:30] LABS: ANISOCYTOSIS 2+; BAND 2 % (0-10); EOSINOPHIL 1 % (0-4); HYPOCHROMIA 1+; LYMPHOCYTE 6 % (20.0-51.0); METAMYELOCYTE 1 % (0-0); NEUTROPHILS 84 % (42.0-75.2); PLATELET ESTIMATE NORMAL (NORMAL)
[2019-11-24 09:59] LABS: PROTHROMBIN TIME 11.4 SECONDS (9.7-12.8)
[2019-11-25] VITALS (1124 sets, daily range): BP systolic 115–160; BP diastolic 65–101; PULSE 90–130; TEMP 97.3–99; O2SAT 85–100
[2019-11-25 04:16] LABS: BASO % 0.2 % (0.0-2.0); EOS # 0.2 (0.0-0.7); EOS % 0.9 % (0-4.0); GRAN # 20.7 (1.4-6.5); GRAN % 85.2 % (42.2-75.2); LYMPH # 0.8 (1.2-3.4); LYMPH % 3.2 % (20.0-51.0); MEAN CELL VOLUME 88 fl (80.0-100.0); MEAN CORPUSCULAR HGB CONC 30 g/dl (33.0-37.0); MONO # 2.1 (0.1-0.6); MONO % 8.5 % (1.7-9.3); PLATELET COUNT 177 K/mm3 (130-400); RED BLOOD COUNT 2.32 M/mm3 (4.20-5.60); REDCELL DISTRIBUTION WIDTH-CV 18.7 % (11.5-14.5)
[2019-11-25 04:26] LABS: CALCIUM 8.3 mg/dL (8.4-10.2); CREATININE, serum 4.03 (0.66-1.25); POTASSIUM 4.1 mmol/L (3.4-5.0)
[2019-11-25 04:59] LABS: HEMATOCRIT 20.5 % (42.0-52.0); HEMOGLOBIN 6.2 g/dl (13.5-18.0); MEAN CORPUSCULAR HEMOGLOBIN 27 pg (27.0-31.0)
[2019-11-25 05:40] LABS: ARTERIAL BLD GAS O2 SATURATION 97.6 % (92-100); ARTERIAL BLD GAS TCO2 CT 24.7; ARTERIAL BLOOD GAS BASE EXCESS 0.2 (-2-2); ARTERIAL BLOOD GAS HCO3 23.7 meq/L (22-26); ARTERIAL BLOOD GAS PCO2 33.1 mmHg (35-45); ARTERIAL BLOOD GAS PO2 104.7 mmHg (80-100); ARTERIAL BLOOD GAS pH 7.47 (7.35-7.45)
[2019-11-25 11:40] LABS: CLOSTRIDIUM DIFF A/B NEG; CLOSTRIDIUM DIFF A/B INTERP No C.diff present
[2019-11-25 13:47] LABS: HEMATOCRIT 24.7 % (42.0-52.0); HEMOGLOBIN 7.8 g/dl (13.5-18.0)
[2019-11-26] VITALS (1029 sets, daily range): BP systolic 122–146; BP diastolic 65–97; PULSE 78–107; TEMP 97–98.8; O2SAT 94–100
[2019-11-26 05:25] LABS: MEAN CELL VOLUME 86 fl (80.0-100.0); MEAN CORPUSCULAR HGB CONC 32 g/dl (33.0-37.0); MEAN PLATELET VOLUME 11.2 fl (7.4-10.4); PLATELET COUNT 235 K/mm3 (130-400); RED BLOOD COUNT 2.53 M/mm3 (4.20-5.60); REDCELL DISTRIBUTION WIDTH-CV 17.6 % (11.5-14.5)
[2019-11-26 05:27] LABS: HEMATOCRIT 21.7 % (42.0-52.0); MEAN CORPUSCULAR HEMOGLOBIN 27 pg (27.0-31.0)
[2019-11-26 05:32] LABS: ARTERIAL BLD GAS O2 SATURATION 98.1 % (92-100); ARTERIAL BLD GAS TCO2 CT 26.9; ARTERIAL BLOOD GAS BASE EXCESS 2.1 (-2-2); ARTERIAL BLOOD GAS HCO3 25.8 meq/L (22-26); ARTERIAL BLOOD GAS PCO2 36.1 mmHg (35-45); ARTERIAL BLOOD GAS PO2 119.2 mmHg (80-100); ARTERIAL BLOOD GAS pH 7.47 (7.35-7.45)
[2019-11-26 05:33] LABS: HEMOGLOBIN 6.9 g/dl (13.5-18.0)
[2019-11-26 05:35] LABS: CALCIUM 8.6 mg/dL (8.4-10.2); CREATININE, serum 2.9 (0.66-1.25); MAGNESIUM 1.9 mg/dL (1.6-2.3); POTASSIUM 4.3 mmol/L (3.4-5.0)
[2019-11-26 05:54] LABS: BAND 1 % (0-10); EOSINOPHIL 1 % (0-4); LYMPHOCYTE 6 % (20.0-51.0); NEUTROPHILS 88 % (42.0-75.2); PLATELET ESTIMATE NORMAL (NORMAL)
[2019-11-26 05:55] LABS: ANISOCYTOSIS 1+; HYPOCHROMIA 2+
[2019-11-26 05:56] LABS: OVALOCYTES 1+
[2019-11-26 16:41] LABS: HEMATOCRIT 23.9 % (42.0-52.0); HEMOGLOBIN 7.6 g/dl (13.5-18.0)
[2019-11-27] VITALS (1027 sets, daily range): BP systolic 154–167; BP diastolic 78–87; PULSE 63–114; TEMP 97–99.6; O2SAT 95–100
[2019-11-27 05:12] LABS: MEAN CELL VOLUME 88 fl (80.0-100.0); MEAN CORPUSCULAR HGB CONC 32 g/dl (33.0-37.0); PLATELET COUNT 292 K/mm3 (130-400); RED BLOOD COUNT 2.68 M/mm3 (4.20-5.60); REDCELL DISTRIBUTION WIDTH-CV 17.6 % (11.5-14.5)
[2019-11-27 05:15] LABS: HEMATOCRIT 23.5 % (42.0-52.0); HEMOGLOBIN 7.4 g/dl (13.5-18.0); MEAN CORPUSCULAR HEMOGLOBIN 28 pg (27.0-31.0)
[2019-11-27 05:23] LABS: CALCIUM 8.3 mg/dL (8.4-10.2); POTASSIUM 4.2 mmol/L (3.4-5.0)
[2019-11-27 05:43] LABS: ARTERIAL BLOOD GAS HCO3 22.9 meq/L (22-26); ARTERIAL BLOOD GAS PCO2 33.3 mmHg (35-45); ARTERIAL BLOOD GAS PO2 138.4 mmHg (80-100); ARTERIAL BLOOD GAS pH 7.45 (7.35-7.45)
[2019-11-27 05:44] LABS: BAND 3 % (0-10); EOSINOPHIL 1 % (0-4); LYMPHOCYTE 5 % (20.0-51.0); NEUTROPHILS 80 % (42.0-75.2)
[2019-11-27 05:44] LABS: ARTERIAL BLD GAS O2 SATURATION 98.7 % (92-100); ARTERIAL BLOOD GAS BASE EXCESS -0.7 (-2-2)
[2019-11-28] VITALS (1069 sets, daily range): BP systolic 119–180; BP diastolic 71–94; PULSE 85–110; TEMP 97.2–98.5; O2SAT 90–100
[2019-11-28 04:36] LABS: MEAN CELL VOLUME 88 fl (80.0-100.0); MEAN CORPUSCULAR HGB CONC 31 g/dl (33.0-37.0); MEAN PLATELET VOLUME 11.1 fl (7.4-10.4); PLATELET COUNT 387 K/mm3 (130-400); RED BLOOD COUNT 2.73 M/mm3 (4.20-5.60); REDCELL DISTRIBUTION WIDTH-CV 17.4 % (11.5-14.5)
[2019-11-28 04:45] LABS: ALBUMIN 2.5 gm/dL (3.5-5.0); BILIRUBIN,TOTAL 0.5 mg/dL (0.0-1.0); CALCIUM 8.3 mg/dL (8.4-10.2); CREATININE, serum 4.17 (0.66-1.25); MAGNESIUM 1.9 mg/dL (1.6-2.3); PHOSPHOROUS 4.8 mg/dL (2.5-4.5); POTASSIUM 4.2 mmol/L (3.4-5.0); TOTAL PROTEIN 5.1 gm/dL (6.4-8.2)
[2019-11-28 04:52] LABS: PRE ALBUMIN 23.8 mg/dL (17.6-36.0)
[2019-11-28 04:59] LABS: HEMATOCRIT 24.1 % (42.0-52.0); HEMOGLOBIN 7.5 g/dl (13.5-18.0); MEAN CORPUSCULAR HEMOGLOBIN 27 pg (27.0-31.0)
[2019-11-28 05:36] LABS: ANISOCYTOSIS 1+; LYMPHOCYTE 4 % (20.0-51.0); NEUTROPHILS 88 % (42.0-75.2); PLATELET ESTIMATE NORMAL (NORMAL)
[2019-11-29] VITALS (369 sets, daily range): BP systolic 113–140; BP diastolic 60–72; PULSE 84–99; TEMP 97.7–99; O2SAT 99–100
[2019-11-29 06:39] LABS: ALBUMIN 2.7 gm/dL (3.5-5.0); BILIRUBIN,TOTAL 0.5 mg/dL (0.0-1.0); CALCIUM 8.1 mg/dL (8.4-10.2); CREATININE, serum 4.3 (0.66-1.25); POTASSIUM 4.6 mmol/L (3.4-5.0); TOTAL PROTEIN 5.4 gm/dL (6.4-8.2)
[2019-11-29 08:28] LABS: BASO % 0.1 % (0.0-2.0); EOS # 0.2 (0.0-0.7); GRAN # 13.3 (1.4-6.5); GRAN % 84.8 % (42.2-75.2); LYMPH # 0.7 (1.2-3.4); LYMPH % 4.2 % (20.0-51.0); MEAN CELL VOLUME 92 fl (80.0-100.0); MEAN CORPUSCULAR HGB CONC 30 g/dl (33.0-37.0); MEAN PLATELET VOLUME 11.3 fl (7.4-10.4); MONO # 1.4 (0.1-0.6); MONO % 8.8 % (1.7-9.3); PLATELET COUNT 436 K/mm3 (130-400); RED BLOOD COUNT 2.65 M/mm3 (4.20-5.60)
[2019-11-29 08:36] LABS: HEMATOCRIT 24.4 % (42.0-52.0); HEMOGLOBIN 7.3 g/dl (13.5-18.0); MEAN CORPUSCULAR HEMOGLOBIN 28 pg (27.0-31.0)
[2019-11-30] VITALS (484 sets, daily range): BP systolic 116–145; BP diastolic 71–91; PULSE 74–116; TEMP 97.1–99.1; O2SAT 96–100
[2019-11-30 20:02] LABS: URINE TOTAL VOLUME 1500 mL
[2019-11-30 21:38] LABS: URINE 24 HOUR CREATININE 0.6 gm/24 hr (1.0-2.0)
[2019-12-01] VITALS (1092 sets, daily range): BP systolic 118–159; BP diastolic 82–94; PULSE 69–95; TEMP 97–98.4; O2SAT 72–100
[2019-12-01 09:19] LABS: BASO % 0.1 % (0.0-2.0); EOS # 0.1 (0.0-0.7); GRAN # 12.7 (1.4-6.5); GRAN % 86.6 % (42.2-75.2); LYMPH # 0.6 (1.2-3.4); LYMPH % 4.1 % (20.0-51.0); MEAN CELL VOLUME 91 fl (80.0-100.0); MEAN CORPUSCULAR HGB CONC 31 g/dl (33.0-37.0); MONO # 1.1 (0.1-0.6); MONO % 7.3 % (1.7-9.3); PLATELET COUNT 420 K/mm3 (130-400); RED BLOOD COUNT 2.77 M/mm3 (4.20-5.60); REDCELL DISTRIBUTION WIDTH-CV 16.8 % (11.5-14.5)
[2019-12-01 09:25] LABS: HEMATOCRIT 25.1 % (42.0-52.0); HEMOGLOBIN 7.7 g/dl (13.5-18.0); MEAN CORPUSCULAR HEMOGLOBIN 28 pg (27.0-31.0)
[2019-12-01 09:30] LABS: ALBUMIN 2.7 gm/dL (3.5-5.0); CALCIUM 8.6 mg/dL (8.4-10.2); CREATININE, serum 3.58 (0.66-1.25); PHOSPHOROUS 4.1 mg/dL (2.5-4.5); POTASSIUM 4.1 mmol/L (3.4-5.0)
[2019-12-01 18:46] LABS: CREATININE, serum 3.58 (0.66-1.25)
[2019-12-02] VITALS (697 sets, daily range): BP systolic 113–125; BP diastolic 72–84; PULSE 79–114; TEMP 97.5–98.2; O2SAT 97–100
[2019-12-02] MEDS ORDERED: ALBUTEROL0.83 MG/ML IH (14:43)
[2019-12-02] MEDS ORDERED: OSCAL 500 TAB500 MG PEG (14:45)
[2019-12-02] MEDS ORDERED: NOVLOG SQ (14:46)
== END 2019-12-02 17:10 | DRG 3 ==
LOC: SDCO 05:44 → ICU 09:30 → SDCO 09:35 → ICU 09:36
PROVIDERS: Hospitalist; Internal Medicine; Internal Medicine Nephrology; Internal Medicine Pulmonary Disease; Nurse Practitioner; Otolaryngology; ADMIT Urology
PROC: 5A1D70Z Performance of Urinary Filtration, Intermittent, Less than 6 Hours Per Day (ICD-10-PCS; 2019-11-18)
PROC: 06HY33Z Insertion of Infusion Device into Lower Vein, Percutaneous Approach (ICD-10-PCS; 2019-11-18)
PROC: 0TP98DZ Removal of Intraluminal Device from Ureter, Via Natural or Artificial Opening Endoscopic (ICD-10-PCS; 2019-11-18)
PROC: 0TP98DZ Removal of Intraluminal Device from Ureter, Via Natural or Artificial Opening Endoscopic (ICD-10-PCS; 2019-11-18)
PROC: 0TF48ZZ Fragmentation in Left Kidney Pelvis, Via Natural or Artificial Opening Endoscopic (ICD-10-PCS; 2019-11-18)
PROC: 0TF38ZZ Fragmentation in Right Kidney Pelvis, Via Natural or Artificial Opening Endoscopic (ICD-10-PCS; 2019-11-18)
PROC: 0T568ZZ Destruction of Right Ureter, Via Natural or Artificial Opening Endoscopic (ICD-10-PCS; 2019-11-18 07:30)
PROC: 5A1955Z Respiratory Ventilation, Greater than 96 Consecutive Hours (ICD-10-PCS; 2019-11-18 07:30)
PROC: 0T788DZ Dilation of Bilateral Ureters with Intraluminal Device, Via Natural or Artificial Opening Endoscopic (ICD-10-PCS; 2019-11-18 07:30)
PROC: 0BH17EZ Insertion of Endotracheal Airway into Trachea, Via Natural or Artificial Opening (ICD-10-PCS; 2019-11-18 07:30)
PROC: 0DH63UZ Insertion of Feeding Device into Stomach, Percutaneous Approach (ICD-10-PCS; 2019-11-28)
PROC: 0B113F4 Bypass Trachea to Cutaneous with Tracheostomy Device, Percutaneous Approach (ICD-10-PCS; principal; 2019-11-28 14:00)
DX: G93.1 Anoxic brain damage, not elsewhere classified (principal); J96.01 Acute respiratory failure with hypoxia; I97.711 Intraoperative cardiac arrest during other surgery; E87.2 Acidosis; N25.81 Secondary hyperparathyroidism of renal origin; N17.9 Acute kidney failure, unspecified; N20.2 Calculus of kidney with calculus of ureter; N18.5 Chronic kidney disease, stage 5; Y83.8 Other surgical procedures as the cause of abnormal reaction of the patient, or of later complication, without mention of misadventure at the time of the procedure; Z20.828 Contact with and (suspected) exposure to other viral communicable diseases; Z87.442 Personal history of urinary calculi; I12.9 Hypertensive chronic kidney disease with stage 1 through stage 4 chronic kidney disease, or unspecified chronic kidney disease; Z72.0 Tobacco use; D63.1 Anemia in chronic kidney disease; Z90.49 Acquired absence of other specified parts of digestive tract; M13.0 Polyarthritis, unspecified; Z91.19 Patient's noncompliance with other medical treatment and regimen
CPT/HCPCS: 99223-AI; 99233-AI; C1769; C2617; C9113; J0360; J0610; J0636; J0690; J1100; J1644; J1940; J2250; J2370; J2405; J2543; J2704; J2930; J3010; J3475; J3480; J7030; J7060; J7120; J7512; P9016; Q5105; Q5106; Q9967

== ENCOUNTER → 2020-04-13 | Outpatient (CLI) | payer BC ==
[~2020-04-13] MED LIST changes: +ALBUTEROL0.83 MG/ML IH; +FLOMAX 0.40.4 MG/CAP PO; +LASIX 20MG TABL20 MG PO; +NOVLOG SQ; +OSCAL 500 TAB500 MG PEG
== END ==
LOC: COL.VAS 14:00
DX: Z01.818 Encounter for other preprocedural examination (principal); N17.9 Acute kidney failure, unspecified

== ENCOUNTER 2020-05-11 09:46 | Day surgery (SDC) | payer BC ==
[~2020-05-11] VITALS: Ht 172.7 cm; Wt 70.0 kg
[2020-05-11 10:10] VITALS: BP 141/79; PULSE 86; TEMP 98.6
[2020-05-11 10:38] LABS: CALCIUM 9.6 mg/dL (8.4-10.2); CREATININE, serum 5.53 (0.66-1.25)
[2020-05-11] MEDS ORDERED: PHOS LO PO (10:46)
[2020-05-11] MEDS ORDERED: LASIX 20MG TABL20 MG PO (10:47)
[2020-05-11] MEDS ORDERED: LOPID 600M600 MG/TAB PO (10:47)
[2020-05-11] MEDS ORDERED: ANTI-DIARRHEAL2 MG PO (10:49)
[2020-05-11] MEDS ORDERED: NORCO 325 MG-51 TAB PO (12:55)
[2020-05-11 12:58] VITALS: BP 126/70; PULSE 101
--- NOTE | 2020-05-11 12:58 | NUR ---
Returns to room 1 per cart from surgery accompanied by Bear RN and Adin [employer] SET UP OPERATOR. Patient arouses to verbal stimuli and is tearful. Returns to sleep. IV fluids infusing and site is free of redness. Siderails up x2 and call light in reach. Temp 98.3 and room air sats 94%. Dressing clean and dry on the right dialysis catheter and thrill noted on the left AC fistula site. Site covered with exofin dressing. Allowed to rest.
[2020-05-11 13:13] VITALS: BP 124/74; PULSE 76
--- NOTE | 2020-05-11 13:13 | NUR ---
Resting with eyes closed and not disturbed. Room air sats 92%. Siderails up x2 and call light in reach.
[2020-05-11 13:28] VITALS: BP 114/66; PULSE 76
--- NOTE | 2020-05-11 13:28 | NUR ---
Continues to rest and not disturbed. Thrill noted.
[2020-05-11 13:43] VITALS: BP 102/63; PULSE 72
--- NOTE | 2020-05-11 13:43 | NUR ---
Room air sats 93% and resting with eyes closed.
[2020-05-11 13:58] VITALS: BP 103/64; PULSE 72
--- NOTE | 2020-05-11 13:58 | NUR ---
Continues to rest with eyes closed and not disturbed.
--- NOTE | 2020-05-11 14:30 | NUR ---
More awake and drinking water. Patty called for ride home and will call when she gets to the hospital. IV discontinued and site is free of redness.
--- NOTE | 2020-05-11 15:15 | NUR ---
Dressed and sitting on the edge of the cart awaiting ride home. Dismissal instructions were given and voices understanding of these.
--- NOTE | 2020-05-11 15:59 | NUR ---
Ride here and patient dismissed to home driven by friend Patty. Taken to the front door per wheelchair and assisted into vehicle with instructions in hand.
[2020-08-13] MEDS ORDERED: LASIX 20MG TABL20 MG PO (11:53)
[2020-08-20] MEDS ORDERED: PREDNISONE10 MG PO (09:04)
== END 2020-05-11 15:57 | disposition home or self-care (01) ==
LOC: SDCO 09:46
PROVIDERS: Surgery
DX: T82.848A Pain due to vascular prosthetic devices, implants and grafts, initial encounter (principal); N18.6 End stage renal disease; I12.0 Hypertensive chronic kidney disease with stage 5 chronic kidney disease or end stage renal disease; F32.9 Major depressive disorder, single episode, unspecified; Z20.822 Contact with and (suspected) exposure to COVID-19; Z79.899 Other long term (current) drug therapy; Z87.891 Personal history of nicotine dependence; Z99.2 Dependence on renal dialysis
CPT/HCPCS: C1750; J0690; J1644; J2704; J3010; J7030

== ENCOUNTER → 2020-08-20 | Outpatient (CLI) | payer BC ==
[~2020-08-20] VITALS: Ht 172.7 cm; Wt 69.6 kg
[~2020-08-20] MED LIST changes: +ANTI-DIARRHEAL2 MG PO; +LOPID 600M600 MG/TAB PO; +PHOS LO PO
[2020-08-20 09:05] VITALS: BP 162/83; PULSE 85
--- NOTE | 2020-08-20 10:12 | NUR ---
PT REFUSED SNACK. SITE IS [facility].
== END ==
LOC: COL.RAD 08-16 07:15
DX: Z49.01 Encounter for fitting and adjustment of extracorporeal dialysis catheter (principal)

== ENCOUNTER 2023-12-14 07:39 | Day surgery (SDC) | payer MEDICARE, MEDICAID ==
[2023-12-14] VITALS (8 sets, daily range): BP systolic 94–154; BP diastolic 64–87; PULSE 50–60; TEMP 96.8–97.3
[~2023-12-14] VITALS: Ht 172.7 cm; Wt 61.2 kg
[~2023-12-14 07:39] MED LIST changes: +B12 SQ; +CEFTIN500 MG PO; +LEXAPRO20 MG PO; +LR 1,000 ML IV SCH; +TYLENOL 500MG500 MG PO; +VELPHORO PO
[2023-12-14] MEDS ORDERED: Lidocaine PF 2% (20 MG/ML) 5 ML VIAL ONE (07:58)
[2023-12-14] MEDS ORDERED: NS 10 ML IV ONE (07:58)
[2023-12-14 08:45] LABS: CALCIUM 8.4 mg/dL (8.4-10.2); CREATININE, serum 8.72 mg/dL (0.72-1.25); POTASSIUM 4.3 mEq/L (3.5-4.5)
[2023-12-14] MEDS ORDERED: fentaNYL 50 MCG/ML 2 ML VIAL ONE ×2 (09:45→12:03)
[2023-12-14] MEDS ORDERED: Topical Skin Adhesive 1 EACH (1 ML) TOP ONE (10:11)
[2023-12-14] MEDS ORDERED: Lidocaine PF 2% (20 MG/ML) 10 ML POLY AMP IJ ONE ×2 (10:11)
[2023-12-14] MEDS ORDERED: Gelatin Sponge,Absorbable Size 100 SPONGE TP ONE (10:11)
[2023-12-14] MEDS ORDERED: Thrombin Human (Recombinant) 5,000 UNITS VIAL TP ONE (10:11)
[2023-12-14] MEDS ORDERED: Ondansetron 4 MG/2 ML VIAL IV PRN ×2 (10:15→13:30)
[2023-12-14] MEDS ORDERED: hydrALAZINE 20 MG/ML 1 ML VIAL IV PRN (10:15)
[2023-12-14] MEDS ORDERED: HYDROmorphone 1 MG/1 ML SYRINGE [PACU/SDC ONLY] IV PRN (10:15)
--- NOTE | 2023-12-14 12:36 | NUR ---
PATIENT RETURNED TO BY 7 VIA CART, AWAKE AND ORIENTED X3. DENIES PAIN, NAUSEA AND SHORTNESS OF BREATH. BREATHING REGULAR/UNLABORED ON ROOM AIR. SKIN WARM AND DRY. HANDOFF COMPLETED BEDSIDE WITH VANI Rojas RN AND BOB Tadeo CRNA. VISIBLE SURGICAL INCISION TO RUE WITH SKIN GLUE CLOSURE. SITE IS CLEAN AND DRY WITH SKIN GLUE INTACT. SURROUNDING SKIN DRY AND INTACT. PALPABLE THRILL AT SITE. PALPABLE RIGHT RADIAL PULSE, CAPILLARY REFILL 3 SECONDS. SKIN IS WARM AND DRY. LEFT FOREARM IV IN PLACE. PATIENT HAS NO COMPLAINTS, STATES HE FEELS "TIRED". PATIENT HAD WATER TO DRINK. NO DYSPHAGIA. CALL LIGHT IN REACH.
[2023-12-14] MEDS ORDERED: Acetaminophen 325 MG TAB PO PRN (13:30)
--- NOTE | 2023-12-14 13:48 | NUR ---
1308: PATIENT HAD [facility]AN[facility]A PUDDING 1335: DISCHARGE TEACHING COMPLETED WITH PRINTED EDUCATION AND INSTRUCTIONS SENT HOME WITH PATIENT. PATIENT VERBALIZED UNDERSTANDING OF INSTRUCTIONS AND EXPRESSED THAT HE WAS VERY COMFORTABLE DISCHARGING WITH HIS AV FISTULA BECAUSE HE HAS HAD SIMILAR SURGERIES PRIOR. 1344: PATIENT DENIES PAIN, NAUSEA AND SHORTNESS OF BREATH. SURGICAL INCISION CLEAN AND DRY WITH SKIN GLUE INTACT. SKIN WARM AND DRY. LEFT FOREARM IV REMOVED, GAUZE AND COBAN PLACED OVER SITE. 1348: PATIENT DISCHARGED HOME WITH MOTHER, BLESSING, TRANSPORT.
== END 2023-12-14 13:48 | disposition home or self-care (01) ==
LOC: SDCO 07:39
PROVIDERS: Registered Nurse
DX: T82.590A Other mechanical complication of surgically created arteriovenous fistula, initial encounter (principal); N18.5 Chronic kidney disease, stage 5; Z87.891 Personal history of nicotine dependence; Z99.2 Dependence on renal dialysis
CPT/HCPCS: A4648; J0665; J0690; J1644; J2704; J3010; J7120

== ENCOUNTER → 2024-01-27 | Outpatient (CLI) | payer MEDICARE, MEDICAID ==
[~2024-01-27] MED LIST changes: -LR 1,000 ML IV SCH
== END ==
LOC: COL.RAD 12:13
DX: T82.590D Other mechanical complication of surgically created arteriovenous fistula, subsequent encounter (principal)